=== PATIENT | male | born 1975 | race African-American/Black ===

== ENCOUNTER 2016-11-23 03:00 | Emergency (ER) | payer MEDICARE, OTHER ==
[~2016-11-23 03:00] MED LIST: ACYC400T PO; BENA25CA2 PO; BENZ1TAB PO; BUSP10TA PO; ZYPR20TA PO
[2016-11-23 03:40] VITALS: BP 142/76; PULSE 85; RESP 18; TEMP 97.9; O2SAT 99
[2016-11-23 04:05] LABS: AMPHETAMINE, URINE NEG (NEG); BARBITURATES, URINE NEG (NEG); COCAINE, URINE NEG (NEG)
--- NOTE | 2016-11-23 05:13 | PD ---
HPI Chief Complaint: Psychiatric Symptoms Time Seen by Provider: 05:12 Travel History International Travel<30 days: No Contact w/Intl Traveler<30days: No Traveled to known affect area: No History of Present Illness HPI 41-year-old black male returns soon after leaving AGAINST MEDICAL ADVICE under [place] act by PD. The patient allegedly had confronted police outside in the parking lot stating that the government was attempting to control his mind. He states that they're telling him to take the police officers gun so they can shoot him. The patient here denies any medical complaints now. He states that he had cramps earlier but they did resolve. The patient would like to go back to sleep. Patient denies any suicidal or homicidal ideation. The patient appears more interested in sleeping been continuing are conversation. This is a patient who had seen earlier this evening. I see no acute changes. PFSH Past Medical History Arthritis: No Asthma: No Autoimmune Disease: No Anxiety: Yes (WITH PANIC ATTACKS) Depression: Yes Heart Rhythm Problems: No High Cholesterol: Yes Chest Pain: No Congestive Heart Failure: No COPD: No Cerebrovascular Accident: No Diminished Hearing: No Endocrine: No Gastrointestinal Disorders: Yes (HX OF HEMMORHOIDECTOMY) GERD: Yes Glaucoma: No Genitourinary: Yes (GENITAL HERPES) Hepatitis: No Hiatal Hernia: No Hypertension: No Immune Disorder: No Implanted Vascular Access Dvce: No Kidney Stones: No Musculoskeletal: No Neurologic: Yes (HX OF BELLS PALSY) Psychiatric: Yes Reproductive: No Respiratory: No Immunizations Current: No Myocardial Infarction: No Renal Failure: No Schizophrenia: Yes Sleep Apnea: No Thyroid Disease: No Ulcer: No Past Surgical History Abdominal Surgery: No AICD: No Cardiac Surgery: No Ear Surgery: No Endocrine Surgery: No Eye Surgery: No Genitourinary Surgery: No Gynecologic Surgery: No Neurologic Surgery: No Oral Surgery: No Pacemaker: No Thoracic Surgery: No Other Surgery: Yes (jaw) Social History Alcohol Use: Yes (DAILY ) Tobacco Use: Yes (1PPD) Substance Use: No Allergies-Medications (Allergen,Severity, Reaction): Coded Allergies: Cultivated Oat Pollen (Verified Allergy, Mild, SNEEZING, ITCHING, 03/09/16 ) Uncoded Allergies: Seasonal Allergies (Allergy, Unknown, 02/13/13) Per pt. Reported Meds & Prescriptions Reported Meds & Active Scripts Active Reported Buspirone (Buspirone HCl) 10 Mg Tab 10 Mg PO TID Review of Systems Except as stated in HPI: all other systems reviewed are Neg Physical Exam Narrative GENERAL: Well-nourished, well-developed patient. SKIN: Warm and dry. HEAD: Normocephalic and atraumatic. EYES: No scleral icterus. No injection or drainage. ENT: No nasal drainage noted. Mucous membranes pink. Airway patent. NECK: Supple, trachea midline. Moves head freely without obvious discomfort. CARDIOVASCULAR: Regular rate and rhythm without murmurs, gallops, or rubs. RESPIRATORY: Breath sounds equal bilaterally. No accessory muscle use. GASTROINTESTINAL: Abdomen soft, non-tender, nondistended. EXTREMITIES: No cyanosis or edema. BACK: Nontender without obvious deformity. No CVA tenderness. NEURO: Patient is alert and oriented. no sensorimotor deficits. Nonfocal. Normal speech. PSYCH: Positive delusions of mind control by the government. Data Data Last Documented VS Vital Signs Date Time Temp Pulse Resp B/P Pulse Ox O2 Delivery O2 Flow Rate FiO2 11/23/16 03:40 97.9 85 18 142/76 99 Orders Diet Regular Basic (11/23/16 Breakfast) Drug Screen, Random Urine (11/23/16 03:36) Psych Screen (11/23/16 04:43) Labs Laboratory Tests Test 11/23/16 03:40 Urine Opiates Screen NEG Urine Barbiturates Screen NEG Urine Amphetamines Screen NEG Urine Benzodiazepines Screen NEG Urine Cocaine Screen NEG Urine Cannabinoids Screen NEG MDM Medical Decision Making Medical Screen Exam Complete: Yes Emergency Medical Condition: Yes Medical Record Reviewed: Yes Interpretation(s) Laboratory testing from earlier in the evening was unremarkable. Laboratory Tests Test 11/23/16 03:40 Urine Opiates Screen NEG Urine Barbiturates Screen NEG Urine Amphetamines Screen NEG Urine Benzodiazepines Screen NEG Urine Cocaine Screen NEG Urine Cannabinoids Screen NEG Differential Diagnosis MDM: High Differential diagnoses: Schizophrenia, schizoaffective disorder, bipolar, anxiety, depression, adjustment reaction, mood disorder NOS, ODD, depressive disorder NOS, dementia, dementia with agitation, psychosis NOS, substance induced mood disorder, intermittent explosive disorder, Asperger syndrome, infection,electrolyte abnormality, malingering. Narrative Course Mental health screening discussed with the patient. Psychiatric screen ordered. The patient's been medically cleared. This is medical clearance for psychiatric admission, schizophrenia Diagnosis Primary Impression: Encounter for medical screening examination Additional Impression: Schizophrenia Qualified Code: F20.9 - Schizophrenia, unspecified type Condition: Stable Johny Zamarripa Nov 23, 2016 05:12
[2016-11-23] MEDS ORDERED: BUSP15TA PO (05:54)
[2016-11-23] MEDS ORDERED: DIPH25TA5 (05:54)
[2016-11-23] MEDS ORDERED: BANO25CA PO (05:54)
[2016-11-23] MEDS ORDERED: BENZ0.5T PO (05:54)
[2016-11-23] MEDS ORDERED: ZIPR1CAP8 PO (05:54)
[2016-11-23] MEDS ORDERED: SLEEP AID PO (05:54)
[2016-11-23 06:07] VITALS: BP 103/52; PULSE 59; RESP 18
--- NOTE | 2016-11-23 10:59 | PD ---
History of Present Illness Chief Complaint: Psychiatric Symptoms Time Seen by Provider: 10:50 Travel History International Travel<30 Days: No Contact w/Intl Traveler<30days: No Known affected area: No Legal Status Legal Status: Cotton Act [place] Act Signed By: Ana Florentino History of Present Illness: History of Present Illness HPI 41-year-old black male with history of schizophrenia who [place] [facility] soon after leaving AGAINST MEDICAL ADVICE. He now returns under [place] act by PD. The patient allegedly had confronted police outside in the parking lot stating that the government was attempting to control his mind. He states that they're telling him to take the police officers gun so they can shoot him. While in Ed he was only minimally cooperative and just wanted to sleep. Patient was monitored in J pod and he slept well during the night. Toxicology is negative for any substances of abuse. This morning the patient is awake, alert and oriented. he is requesting to be discharged and tells me " I am ready for discharge". He reports that he came to the hospital because " because my mind was telling me to do something". He now states " I feel better and I don 't need to be here". He denies any suicidal or homicidal ideation. Denies any hallucinatory process and does not appear to be internally stimulated. He states that he is taking his prescribed medication and that he has an appointment with Rosario at [facility] on November 28, 2016. h [facility] Past Medical History Arthritis: No Asthma: No Autoimmune Disease: No Anxiety: Yes (WITH PANIC ATTACKS) Depression: Yes Heart Rhythm Problems: No High Cholesterol: Yes Chest Pain: No Congestive Heart Failure: No COPD: No Cerebrovascular Accident: No Diminished Hearing: No Endocrine: No Gastrointestinal Disorders: Yes (HX OF HEMMORHOIDECTOMY) GERD: Yes Glaucoma: No Genitourinary: Yes (GENITAL HERPES) Hepatitis: No Hiatal Hernia: No Hypertension: No Immune Disorder: No Implanted Vascular Access Dvce: No Kidney Stones: No Musculoskeletal: No Neurologic: Yes (HX OF BELLS PALSY) Psychiatric: Yes Reproductive: No Respiratory: No Immunizations Current: No Myocardial Infarction: No Renal Failure: No Schizophrenia: Yes Sleep Apnea: No Thyroid Disease: No Ulcer: No Past Surgical History Abdominal Surgery: No AICD: No Cardiac Surgery: No Ear Surgery: No Endocrine Surgery: No Eye Surgery: No Genitourinary Surgery: No Gynecologic Surgery: No Neurologic Surgery: No Oral Surgery: No Pacemaker: No Thoracic Surgery: No Other Surgery: Yes (jaw) Psychiatric History Psychiatric History Hx Psychiatric Treatment: PATIENT WAS LAST ADMITTED TO [facility] FROM 11/06/15 TO 11/13/15 FOR SCHIZOPHRENIA. receives outpatietn care at [facility] History of Inpatient Treatment: Yes Guns or firearms in home: No Social History Homeless male. On disability Hx Alcohol Use: Yes (DAILY ) Hx Tobacco Use: Yes (1PPD) Hx Substance Use: Yes Substance Use Type: Cocaine Other Substances Used: Began relapse Hx of Substance Use Treatment: Yes Family Psychiatric History None reported Allergies-Medications (Allergen,Severity, Reaction): Coded Allergies: Cultivated Oat Pollen (Verified Allergy, Mild, SNEEZING, ITCHING, 03/09/16 ) Uncoded Allergies: Seasonal Allergies (Allergy, Unknown, 02/13/13) Per pt. Reported Meds & Prescriptions Reported Meds & Active Scripts Active Reported Ziprasidone 40 Mg Cap 40 Mg PO BID Buspirone (Buspirone HCl) 15 Mg Tab 15 Mg PO BID Benztropine (Benztropine Mesylate) 0.5 Mg Tab 1 Mg PO HS Banophen (Diphenhydramine HCl) 25 Mg Cap 25 Mg PO HS Diphenhydramine HCl 25 Mg Tablet [Sleep Aid] 1 Tab PO HS PRN Review of Systems Except as stated in HPI: all other systems reviewed are Neg Exam Alert: Yes [place]: Person (ox4) Mood: Calm Affect: Appropriate Speech: Clear, Logical Eye Contact: Normal Memory Intact: Comment (No gross abnormality) Hallucinations: Other (denies any) Delusions: No Suicidal: Ideation (Denies any) Homicidal: Ideation (Deneis any) Insight/Judgement Poor. Poor [facility] Medical Decision Making Medical Record Reviewed: Yes Assessment/Plan 41-year-old black male with history of schizophrenia who returns [place] [facility] soon after leaving AGAINST MEDICAL ADVICE. He now returns under [place] act by PD. The patient allegedly had confronted police outside in the parking lot stating that the government was attempting to control his mind. He states that they're telling him to take the police officers gun so they can shoot him. Patient slept well while in J pod and presented no behavioral concerns. no suicidality. Does not appear to be responding to internal stimuli. he is requesting discharge at [facility] time and presents no criteria chetan held here against his will. It is strongly suspected that he malingered his symptoms in order to obtain snf during the night. BA lifted. Cleared for discharge Orders Diet Regular Basic (11/23/16 Breakfast) Drug Screen, Random Urine (11/23/16 03:36) Psych Screen (11/23/16 04:43) Results Vital Signs Date Time Temp Pulse Resp B/P Pulse Ox O2 Delivery O2 Flow Rate FiO2 11/23/16 06:07 59 18 103/52 11/23/16 03:40 97.9 85 18 142/76 99 Laboratory Tests Test 11/23/16 03:40 Urine Opiates Screen NEG Urine Barbiturates Screen NEG Urine Amphetamines Screen NEG Urine Benzodiazepines Screen NEG Urine Cocaine Screen NEG Urine Cannabinoids Screen NEG Diagnosis Primary Impression: Malingering Additional Impression: Schizophrenia Psychiatrically Cleared: Yes Med/ Other Pt Specific Info: No Change to Meds Disposition: 01 DISCHARGE HOME Condition: Stable Problem Qualifiers Additional Impression: Schizophrenia Qualified Code: F20.0 - Paranoid schizophrenia Nataliia Hook [employer] Nov 23, 2016 10:59
[2016-11-23 11:10] VITALS: BP 103/52; PULSE 59; RESP 18
== END 2016-11-23 12:25 | disposition home or self-care (01) ==
LOC: NEPJ 03:00
DX: Z76.5 Malingerer [conscious simulation] (principal); F20.9 Schizophrenia, unspecified
CPT/HCPCS: 80307; 99284

== ENCOUNTER 2016-11-30 05:22 | Emergency (ER) | payer MEDICARE, OTHER ==
[~2016-11-30] VITALS: Ht 180.3 cm; Wt 75.0 kg
[~2016-11-30 05:22] MED LIST changes: -ACYC400T PO; +BANO25CA PO; -BENA25CA2 PO; +BENZ0.5T PO; -BENZ1TAB PO; -BUSP10TA PO; +BUSP15TA PO; +DIPH25TA5; +SLEEP AID PO; +ZIPR1CAP8 PO; -ZYPR20TA PO
[2016-11-30 05:24] VITALS: BP 130/81; PULSE 60; RESP 16; TEMP 97.9; O2SAT 98
[2016-11-30] MEDS ORDERED: ACYC400T PO (05:44)
[2016-11-30] MEDS ORDERED: BENZ0.5T PO (05:44)
[2016-11-30] MEDS ORDERED: HYDR12.56 PO (05:44)
[2016-11-30] MEDS ORDERED: NEXI20CA PO (05:44)
--- NOTE | 2016-11-30 06:28 | PD ---
HPI Chief Complaint: Medical Clearance Time Seen by Provider: 06:24 Travel History International Travel<30 days: No Contact w/Intl Traveler<30days: No Traveled to known affect area: No History of Present Illness HPI 41-year-old black male presents to emergency department on a voluntary basis for psychological evaluation. The patient states that he's been staying at [facility]. He claims that he's been sober now for the past 1-1/2-2 months. He states that he has not been drinking alcohol or doing any drugs. He also states that he has followed up [facility] area he states that he has not been compliant with his medications because he does not feel they're working for him. The patient states that he's having audible and visual hallucinations. He denies any suicidal or homicidal ideation. He denies any medical complaints. He states that he is having racing thoughts. He cannot concentrate. He has not been sleeping well. He would like to speak with the psychiatrist and hopes to regulate his medicines. PFSH Past Medical History Arthritis: No Asthma: No Autoimmune Disease: No Anxiety: Yes (WITH PANIC ATTACKS) Depression: Yes Heart Rhythm Problems: No High Cholesterol: Yes Chest Pain: No Congestive Heart Failure: No COPD: No Cerebrovascular Accident: No Diminished Hearing: No Endocrine: No Gastrointestinal Disorders: Yes (HX OF HEMMORHOIDECTOMY) GERD: Yes Glaucoma: No Genitourinary: Yes (GENITAL HERPES) Hepatitis: No Hiatal Hernia: No Hypertension: No Immune Disorder: No Implanted Vascular Access Dvce: No Kidney Stones: No Musculoskeletal: No Neurologic: Yes (HX OF BELLS PALSY) Psychiatric: Yes Reproductive: No Respiratory: No Immunizations Current: No Myocardial Infarction: No Renal Failure: No Schizophrenia: Yes Sleep Apnea: No Thyroid Disease: No Ulcer: No Past Surgical History Abdominal Surgery: No AICD: No Cardiac Surgery: No Ear Surgery: No Endocrine Surgery: No Eye Surgery: No Genitourinary Surgery: No Gynecologic Surgery: No Neurologic Surgery: No Oral Surgery: No Pacemaker: No Thoracic Surgery: No Other Surgery: Yes (HEMMORHOIDECTOMY) Social History Alcohol Use: Yes (HX OF ABUSE) Tobacco Use: Yes (2PPD) Substance Use: No (DENIES) Allergies-Medications (Allergen,Severity, Reaction): Coded Allergies: Cultivated Oat Pollen (Verified Allergy, Mild, SNEEZING, ITCHING, 8/9/17) Uncoded Allergies: Seasonal Allergies (Allergy, Unknown, 02/13/13) Per pt. Reported Meds & Prescriptions Reported Meds & Active Scripts Active Reported Hydrochlorothiazide 12.5 Mg Tab 12.5 Mg PO DAILY Acyclovir 400 Mg Tab 400 Mg PO QID Benztropine (Benztropine Mesylate) 0.5 Mg Tab 2 Mg PO HS Nexium (Esomeprazole DR) 20 Mg Capdr 20 Mg PO DAILY Buspirone (Buspirone HCl) 15 Mg Tab 15 Mg PO TID Banophen (Diphenhydramine HCl) 25 Mg Cap 25 Mg PO HS Review of Systems Except as stated in HPI: all other systems reviewed are Neg Physical Exam Narrative GENERAL: Well-nourished, well-developed patient. SKIN: Warm and dry. HEAD: Normocephalic and atraumatic. EYES: No scleral icterus. No injection or drainage. ENT: No nasal drainage noted. Mucous membranes pink. Airway patent. NECK: Supple, trachea midline. Moves head freely without obvious discomfort. CARDIOVASCULAR: Regular rate and rhythm without murmurs, gallops, or rubs. RESPIRATORY: Breath sounds equal bilaterally. No accessory muscle use. GASTROINTESTINAL: Abdomen soft, non-tender, nondistended. EXTREMITIES: No cyanosis or edema. BACK: Nontender without obvious deformity. No CVA tenderness. NEURO: Patient is alert and oriented. no sensorimotor deficits. Nonfocal. Normal speech. PSYCH: Positive hallucinations Data Data Last Documented VS Vital Signs Date Time Temp Pulse Resp B/P Pulse Ox O2 Delivery O2 Flow Rate FiO2 11/30/16 05:24 97.9 60 16 130/81 98 Orders Complete Blood Count With Diff (11/30/16 05:39) Comprehensive Metabolic Panel (11/30/16 05:39) Psych Screen (11/30/16 05:39) Drug Screen, Random Urine (11/30/16 05:39) Alcohol (Ethanol) (11/30/16 05:39) Labs Laboratory Tests Test 11/30/16 11/30/16 05:49 06:16 Sodium Level 143 MEQ/L Potassium Level 3.6 MEQ/L Chloride Level 111 MEQ/L Carbon Dioxide Level 26.0 MEQ/L Anion Gap 6 MEQ/L Blood Urea Nitrogen 13 MG/DL Creatinine 1.09 MG/DL Estimat Glomerular Filtration 91 ML/MIN Rate Random Glucose 91 MG/DL Calcium Level 8.3 MG/DL Total Bilirubin 0.3 MG/DL Aspartate Amino Transf 15 U/L (AST/SGOT) Alanine Aminotransferase 25 U/L (ALT/SGPT) Alkaline Phosphatase 48 U/L Total Protein 6.5 GM/DL Albumin 3.4 GM/DL Urine Opiates Screen NEG Urine Barbiturates Screen NEG Urine Amphetamines Screen NEG Urine Benzodiazepines Screen NEG Urine Cocaine Screen NEG Urine Cannabinoids Screen NEG Ethyl Alcohol Level LESS THAN 3 MG/DL White Blood Count 5.8 TH/MM3 Red Blood Count 4.41 MIL/MM3 Hemoglobin 14.5 GM/DL Hematocrit 41.9 % Mean Corpuscular Volume 95.0 FL Mean Corpuscular Hemoglobin 32.8 PG Mean Corpuscular Hemoglobin 34.6 % Concent Red Cell Distribution Width 13.1 % Platelet Count 219 TH/MM3 Mean Platelet Volume 7.6 FL Neutrophils (%) (Auto) 45.0 % Lymphocytes (%) (Auto) 43.7 % Monocytes (%) (Auto) 7.9 % Eosinophils (%) (Auto) 2.7 % Basophils (%) (Auto) 0.7 % Neutrophils # (Auto) 2.6 TH/MM3 Lymphocytes # (Auto) 2.5 TH/MM3 Monocytes # (Auto) 0.5 TH/MM3 Eosinophils # (Auto) 0.2 TH/MM3 Basophils # (Auto) 0.0 TH/MM3 CBC Comment DIFF FINAL Differential Comment MDM Medical Decision Making Medical Screen Exam Complete: Yes Emergency Medical Condition: Yes Medical Record Reviewed: Yes Interpretation(s) Laboratory Tests Test 11/30/16 11/30/16 05:49 06:16 Sodium Level 143 MEQ/L Potassium Level 3.6 MEQ/L Chloride Level 111 MEQ/L Carbon Dioxide Level 26.0 MEQ/L Anion Gap 6 MEQ/L Blood Urea Nitrogen 13 MG/DL Creatinine 1.09 MG/DL Estimat Glomerular Filtration 91 ML/MIN Rate Random Glucose 91 MG/DL Calcium Level 8.3 MG/DL Total Bilirubin 0.3 MG/DL Aspartate Amino Transf 15 U/L (AST/SGOT) Alanine Aminotransferase 25 U/L (ALT/SGPT) Alkaline Phosphatase 48 U/L Total Protein 6.5 GM/DL Albumin 3.4 GM/DL Urine Opiates Screen NEG Urine Barbiturates Screen NEG Urine Amphetamines Screen NEG Urine Benzodiazepines Screen NEG Urine Cocaine Screen NEG Urine Cannabinoids Screen NEG Ethyl Alcohol Level LESS THAN 3 MG/DL White Blood Count 5.8 TH/MM3 Red Blood Count 4.41 MIL/MM3 Hemoglobin 14.5 GM/DL Hematocrit 41.9 % Mean Corpuscular Volume 95.0 FL Mean Corpuscular Hemoglobin 32.8 PG Mean Corpuscular Hemoglobin 34.6 % Concent Red Cell Distribution Width 13.1 % Platelet Count 219 TH/MM3 Mean Platelet Volume 7.6 FL Neutrophils (%) (Auto) 45.0 % Lymphocytes (%) (Auto) 43.7 % Monocytes (%) (Auto) 7.9 % Eosinophils (%) (Auto) 2.7 % Basophils (%) (Auto) 0.7 % Neutrophils # (Auto) 2.6 TH/MM3 Lymphocytes # (Auto) 2.5 TH/MM3 Monocytes # (Auto) 0.5 TH/MM3 Eosinophils # (Auto) 0.2 TH/MM3 Basophils # (Auto) 0.0 TH/MM3 CBC Comment DIFF FINAL Differential Comment Differential Diagnosis MDM: High Differential diagnoses: Schizophrenia, schizoaffective disorder, bipolar, anxiety, depression, adjustment reaction, mood disorder NOS, ODD, depressive disorder NOS, dementia, dementia with agitation, psychosis NOS, substance induced mood disorder, intermittent explosive disorder, Asperger syndrome, infection,electrolyte abnormality, malingering. Narrative Course Mental health screening discussed with the patient. Psychiatric screen ordered. The patient is been medically cleared. This is medical clearance for psychiatric admission, schizophrenia Diagnosis Primary Impression: Encounter for medical screening examination Additional Impression: Schizophrenia Qualified Code: F20.9 - Schizophrenia, unspecified type Condition: Stable Johny Zamarripa Nov 30, 2016 06:28
[2016-11-30 06:33] LABS: ALT (GPT) 25 U/L (12-78); ANION GAP 6 MEQ/L (5-15); AST (GOT) 15 U/L (15-37); BLOOD UREA NITROGEN 13 MG/DL (7-18); CHLORIDE 111 MEQ/L (98-107); GLOMERULAR FILTRATION RATE 91 ML/MIN (>89); POTASSIUM 3.6 MEQ/L (3.5-5.1); SODIUM (NA) 143 MEQ/L (136-145)
[2016-11-30 06:36] LABS: ALKALINE PHOSPHATASE 48 U/L (45-117); TOTAL BILIRUBIN ADULT 0.3 MG/DL (0.2-1.0)
[2016-11-30 06:37] LABS: ALCOHOL LESS THAN 3 MG/DL (0-5)
[2016-11-30 06:39] LABS: AUTOMATED NEUTROPHIL # 2.6 TH/MM3 (1.8-7.7); BASOPHIL % 0.7 % (0.0-2.0); EOSINOPHIL # 0.2 TH/MM3 (0-0.4); EOSINOPHIL % 2.7 % (0.0-4.0); HEMATOCRIT 41.9 % (39.0-51.0); HEMO FLAGS DIFF FINAL; LYMPH % 43.7 % (9.0-44.0); LYMPHOCYTE # 2.5 TH/MM3 (1.0-4.8); MEAN CORPUSCULAR HEMOGLOBIN 32.8 PG (27.0-34.0); MEAN CORPUSCULAR HGB CONC 34.6 % (32.0-36.0); MONO % 7.9 % (0.0-8.0); PLATELET COUNT 219 TH/MM3 (150-450); RED BLOOD COUNT 4.41 MIL/MM3 (4.50-5.90); RED CELL DISTRIBUTION WIDTH 13.1 % (11.6-17.2); WHITE BLOOD COUNT 5.8 TH/MM3 (4.0-11.0)
[2016-11-30] MEDS ORDERED: SERO50TA PO (10:57)
--- NOTE | 2016-11-30 11:54 | PD ---
History of Present Illness Chief Complaint: Medical Clearance Time Seen by Provider: 11:15 Travel History International Travel<30 Days: No Contact w/Intl Traveler<30days: No Known affected area: No Legal Status Legal Status: Voluntary History of Present Illness: 41-year-old male with history of chronic paranoid schizophrenia, previously treated by [facility]. He presents today seeking medication for "racing thoughts" and general paranoia. He does feel people in the healthcare business are out to persecute him. However, he is also not sleeping due to his paranoia and racing thoughts. This physician discussed multiple aspects of his care, including hospitalization, outpatient treatment, changing medicines, etc. The patient denies any suicidal or homicidal ideation, plan or intent at this time. 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 He denies any ingestion of alcohol or illicit drugs. He would like to take medication to help him sleep and dampen the racing thoughts/paranoia. This physician offered the patient's Seroquel and he agreed, having taken it before. PFSH Past Medical History Arthritis: No Asthma: No Autoimmune Disease: No Anxiety: Yes (WITH PANIC ATTACKS) Depression: Yes Heart Rhythm Problems: No High Cholesterol: Yes Chest Pain: No Congestive Heart Failure: No COPD: No Cerebrovascular Accident: No Diminished Hearing: No Endocrine: No Gastrointestinal Disorders: Yes (HX OF HEMMORHOIDECTOMY) GERD: Yes Glaucoma: No Genitourinary: Yes (GENITAL HERPES) Hepatitis: No Hiatal Hernia: No Hypertension: No Immune Disorder: No Implanted Vascular Access Dvce: No Kidney Stones: No Musculoskeletal: No Neurologic: Yes (HX OF BELLS PALSY) Psychiatric: Yes Reproductive: No Respiratory: No Immunizations Current: No Myocardial Infarction: No Renal Failure: No Schizophrenia: Yes Sleep Apnea: No Thyroid Disease: No Ulcer: No Past Surgical History Abdominal Surgery: No AICD: No Cardiac Surgery: No Ear Surgery: No Endocrine Surgery: No Eye Surgery: No Genitourinary Surgery: No Gynecologic Surgery: No Neurologic Surgery: No Oral Surgery: No Pacemaker: No Thoracic Surgery: No Other Surgery: Yes (HEMMORHOIDECTOMY) Psychiatric History Psychiatric History Hx Psychiatric Treatment: PATIENT WAS LAST ADMITTED TO [facility] FROM 11/06/15 TO 11/13/15 FOR SCHIZOPHRENIA. receives outpatietn care at [facility] History of Inpatient Treatment: Yes Guns or firearms in home: No Social History Hx Alcohol Use: Yes (HX OF ABUSE) Hx Tobacco Use: Yes (2PPD) Hx Substance Use: No (DENIES) Substance Use Type: Cocaine Other Substances Used: Began relapse Hx of Substance Use Treatment: Yes Allergies-Medications (Allergen,Severity, Reaction): Coded Allergies: Cultivated Oat Pollen (Verified Allergy, Mild, SNEEZING, ITCHING, 11/30/16) Uncoded Allergies: Seasonal Allergies (Allergy, Unknown, 02/13/13) Per pt. Reported Meds & Prescriptions Reported Meds & Active Scripts Active Seroquel (Quetiapine Fumarate) 50 Mg Tab 50 Mg PO HS Reported Hydrochlorothiazide 12.5 Mg Tab 12.5 Mg PO DAILY Acyclovir 400 Mg Tab 400 Mg PO QID Benztropine (Benztropine Mesylate) 0.5 Mg Tab 2 Mg PO HS Nexium (Esomeprazole DR) 20 Mg Capdr 20 Mg PO DAILY Buspirone (Buspirone HCl) 15 Mg Tab 15 Mg PO TID Banophen (Diphenhydramine HCl) 25 Mg Cap 25 Mg PO HS Review of Systems Except as stated in HPI: all other systems reviewed are Neg Exam Alert: Yes [place]: Person, Place, Date, Situation Mood: Calm Affect: Appropriate Speech: Clear Eye Contact: Indirect Memory Intact: Immediate, Recent, Remote Delusions: Yes Delusion Type: Paranoid Insight/Judgement Adequate MDM Medical Decision Making Medical Record Reviewed: Yes Assessment/Plan This physician spoke with the patient's nurse and reviewed his record. This physician notes the patient was hospitalized just several weeks ago. At this time, he is denying any suicidal or homicidal ideation, plan or intent. Despite his paranoia and racing thoughts, he is competent to contract for safety and he is doing so. He would like to take his Seroquel and lower doses and this physician did prescribe Seroquel at night. This will help him go to sleep and to dampen the racing thoughts. As least restrictive alternative applies, this physician does not feel the patient qualifies for [place] act or inpatient psychiatric hospitalization. Orders Complete Blood Count With Diff (11/30/16 05:39) Comprehensive Metabolic Panel (11/30/16 05:39) Psych Screen (11/30/16 05:39) Drug Screen, Random Urine (11/30/16 05:39) Alcohol (Ethanol) (11/30/16 05:39) Diet Regular Basic (11/30/16 Breakfast) Results Vital Signs Date Time Temp Pulse Resp B/P Pulse Ox O2 Delivery O2 Flow Rate FiO2 11/30/16 05:24 97.9 60 16 130/81 98 Laboratory Tests Test 11/30/16 11/30/16 05:49 06:16 Sodium Level 143 Potassium Level 3.6 Chloride Level 111 Carbon Dioxide Level 26.0 Anion Gap 6 Blood Urea Nitrogen 13 Creatinine 1.09 Estimat Glomerular Filtration 91 Rate Random Glucose 91 Calcium Level 8.3 Total Bilirubin 0.3 Aspartate Amino Transf 15 (AST/SGOT) Alanine Aminotransferase 25 (ALT/SGPT) Alkaline Phosphatase 48 Total Protein 6.5 Albumin 3.4 Urine Opiates Screen NEG Urine Barbiturates Screen NEG Urine Amphetamines Screen NEG Urine Benzodiazepines Screen NEG Urine Cocaine Screen NEG Urine Cannabinoids Screen NEG Ethyl Alcohol Level LESS THAN 3 White Blood Count 5.8 Red Blood Count 4.41 Hemoglobin 14.5 Hematocrit 41.9 Mean Corpuscular Volume 95.0 Mean Corpuscular Hemoglobin 32.8 Mean Corpuscular Hemoglobin 34.6 Concent Red Cell Distribution Width 13.1 Platelet Count 219 Mean Platelet Volume 7.6 Neutrophils (%) (Auto) 45.0 Lymphocytes (%) (Auto) 43.7 Monocytes (%) (Auto) 7.9 Eosinophils (%) (Auto) 2.7 Basophils (%) (Auto) 0.7 Neutrophils # (Auto) 2.6 Lymphocytes # (Auto) 2.5 Monocytes # (Auto) 0.5 Eosinophils # (Auto) 0.2 Basophils # (Auto) 0.0 CBC Comment DIFF FINAL Differential Comment Diagnosis Primary Impression: Chronic paranoid schizophrenia Referrals: Elton Villa MD (PCP) call for appointment [facility] call for appointment Mental Health and Substance Abuse Departure Forms: Tests/Procedures Patient Instructions: General Instructions, Schizophrenia (ED), Medical Clearance for Psychiatric Care (ED) Prescriptions Quetiapine (Seroquel)50 Mg Tab50 Mg PO HS #30 TAB Ref 1 Prov:Sabino Salmon MD 11/30/16 Condition: Stable Sabino Salmon MD Nov 30, 2016 11:54
== END 2016-11-30 11:06 | disposition home or self-care (01) ==
LOC: NEPD 05:22
DX: F20.0 Paranoid schizophrenia (principal)
CPT/HCPCS: 80053; 80307; 85025; 99283

== ENCOUNTER 2017-01-01 03:34 | Emergency (ER) | payer MEDICARE, OTHER ==
[~2017-01-01] VITALS: Ht 180.3 cm; Wt 80.0 kg
[~2017-01-01 03:34] MED LIST changes: +ACYC400T PO; -DIPH25TA5; +HYDR12.56 PO; +NEXI20CA PO; +SERO50TA PO; -SLEEP AID PO; -ZIPR1CAP8 PO
[2017-01-01 03:41] VITALS: BP 140/85; PULSE 85; RESP 18; TEMP 97.2; O2SAT 98
[2017-01-01] MEDS ORDERED: SERO50TA PO (03:56)
--- NOTE | 2017-01-01 03:56 | PD ---
HPI . Schizophrenia Chief Complaint: Medication Refill Request Time Seen by Provider: 03:41 Travel History International Travel<30 days: No Contact w/Intl Traveler<30days: No Traveled to known affect area: No History of Present Illness HPI This patient presents with the chief complaint of eating cigarette butts. He states that he did this to prove that he needed to be on his psychiatric medications. He denies any medical complaints. He reports emesis prior to presentation. PFSH Past Medical History Arthritis: No Asthma: No Autoimmune Disease: No Anxiety: Yes (WITH PANIC ATTACKS) Depression: Yes Heart Rhythm Problems: No High Cholesterol: Yes Chest Pain: No Congestive Heart Failure: No COPD: No Cerebrovascular Accident: No Diminished Hearing: No Endocrine: No Gastrointestinal Disorders: Yes (HX OF HEMMORHOIDECTOMY) GERD: Yes Glaucoma: No Genitourinary: Yes (GENITAL HERPES) Hepatitis: No Hiatal Hernia: No Hypertension: No Immune Disorder: No Implanted Vascular Access Dvce: No Kidney Stones: No Musculoskeletal: No Neurologic: Yes (HX OF BELLS PALSY) Psychiatric: Yes Reproductive: No Respiratory: No Immunizations Current: No Myocardial Infarction: No Renal Failure: No Schizophrenia: Yes Sleep Apnea: No Thyroid Disease: No Ulcer: No Past Surgical History Abdominal Surgery: No AICD: No Cardiac Surgery: No Ear Surgery: No Endocrine Surgery: No Eye Surgery: No Genitourinary Surgery: No Gynecologic Surgery: No Insulin Pump: No Neurologic Surgery: No Oral Surgery: No Pacemaker: No Thoracic Surgery: No Other Surgery: Yes (HEMMORHOIDECTOMY) Social History Alcohol Use: Yes (HX OF ABUSE) Tobacco Use: Yes (2PPD) Substance Use: No (DENIES) Allergies-Medications (Allergen,Severity, Reaction): Coded Allergies: grass pollen (Unverified Allergy, Mild, SNEEZING, ITCHING, 01/01/17) Uncoded Allergies: Seasonal Allergies (Allergy, Unknown, 02/13/13) Per pt. Reported Meds & Prescriptions Reported Meds & Active Scripts Active Seroquel (Quetiapine Fumarate) 50 Mg Tab 50 Mg PO HS Reported Hydrochlorothiazide 12.5 Mg Tab 12.5 Mg PO DAILY Acyclovir 400 Mg Tab 400 Mg PO QID Benztropine (Benztropine Mesylate) 0.5 Mg Tab 2 Mg PO HS Nexium (Esomeprazole DR) 20 Mg Capdr 20 Mg PO DAILY Buspirone (Buspirone HCl) 15 Mg Tab 15 Mg PO TID Banophen (Diphenhydramine HCl) 25 Mg Cap 25 Mg PO HS Review of Systems Except as stated in HPI: all other systems reviewed are Neg Gastrointestinal: Positive: Nausea, Vomiting Psychiatric: Positive: Disorder of Thought, No: Suicidal Ideations Physical Exam Narrative GENERAL: Patient is awake and alert. He has drunk approximately 32 ounces of Gatorade without difficulty. He takes a gulp of Gatorade and then spits into his emesis bag. There has been no emesis. SKIN: No rashes noted. HEAD: Normocephalic/atraumatic. EYES: Pupils are equal. Extraocular movements are intact. NECK: Full range of motion without pain. CARDIOVASCULAR: Regular rate and rhythm. RESPIRATORY: Nonlabored. MUSCULOSKELETAL: Atraumatic. NEUROLOGICAL: Alert and oriented. No cranial nerve deficits. Moves all 4 extremities equally. PSYCHIATRIC: Appropriate mood and affect. Judgment poor. Data Data Last Documented VS Vital Signs Date Time Temp Pulse Resp B/P (MAP) Pulse Ox O2 Delivery O2 Flow Rate FiO2 01/01/17 03:41 97.2 85 18 140/85 (103) 98 MDM Medical Decision Making Medical Screen Exam Complete: Yes Emergency Medical Condition: Yes Medical Record Reviewed: Yes (he has a history of schizophrenia and is on Seroquel.) Differential Diagnosis Differential diagnosis of psychosis includes but is not limited to schizophrenia , schizoaffective disorder, bipolar disorder, intoxication, substance abuse, dementia Narrative Course This patient presents stating that he ate cigarette butts to prove that he needed to be on his psychiatric medications. He states that he last took his psychiatric medication yesterday. He is now out. He would like a refill. Diagnosis Primary Impression: Chronic paranoid schizophrenia Med/Other Pt SpecificInfo: Prescription(s) given Scripts Quetiapine (Seroquel) 50 Mg Tab 50 MG PO HS, #30 TAB 1 Refill Prov: Kanchan Valdez MD 01/01/17 Disposition: 01 DISCHARGE HOME Condition: Stable Kanchan Valdez MD Jan 01, 2017 03:56
[2017-01-01] MEDS ORDERED: QUEtiapine FUMARATE 25 MG TAB PO ONE (04:00)
== END 2017-01-01 05:08 | disposition home or self-care (01) ==
LOC: NEPE 03:34
DX: F20.0 Paranoid schizophrenia (principal); F17.210 Nicotine dependence, cigarettes, uncomplicated
CPT/HCPCS: 99283

== ENCOUNTER 2017-01-03 00:41 | Emergency (ER) | payer MEDICARE, OTHER ==
[~2017-01-03] VITALS: Ht 180.3 cm; Wt 72.0 kg
[2017-01-03 00:43] VITALS: BP 124/88; PULSE 86; RESP 16; O2SAT 97
--- NOTE | 2017-01-03 00:58 | PD ---
HPI Chief Complaint: Psychiatric Symptoms Time Seen by Provider: 00:50 Travel History International Travel<30 days: No Contact w/Intl Traveler<30days: No Traveled to known affect area: No History of Present Illness HPI 41-year-old black male returns to the emergency department stating that he was kicked out of his [facility] last night. He has not taken his medication. He states that he is unable to sleep. He denies any suicidal or homicidal ideation. PFSH Past Medical History Arthritis: No Asthma: No Autoimmune Disease: No Anxiety: Yes (WITH PANIC ATTACKS) Depression: Yes Heart Rhythm Problems: No High Cholesterol: Yes Chest Pain: No Congestive Heart Failure: No COPD: No Cerebrovascular Accident: No Diminished Hearing: No Endocrine: No Gastrointestinal Disorders: Yes (HX OF HEMMORHOIDECTOMY) GERD: Yes Glaucoma: No Genitourinary: Yes (GENITAL HERPES) Hepatitis: No Hiatal Hernia: No Hypertension: No Immune Disorder: No Implanted Vascular Access Dvce: No Kidney Stones: No Musculoskeletal: No Neurologic: Yes (HX OF BELLS PALSY) Psychiatric: Yes Reproductive: No Respiratory: No Immunizations Current: No Myocardial Infarction: No Renal Failure: No Schizophrenia: Yes Sleep Apnea: No Thyroid Disease: No Ulcer: No Past Surgical History Abdominal Surgery: No AICD: No Cardiac Surgery: No Ear Surgery: No Endocrine Surgery: No Eye Surgery: No Genitourinary Surgery: No Gynecologic Surgery: No Insulin Pump: No Neurologic Surgery: No Oral Surgery: No Pacemaker: No Thoracic Surgery: No Other Surgery: Yes (HEMMORHOIDECTOMY) Social History Alcohol Use: Yes (HX OF ABUSE) Tobacco Use: Yes (2PPD) Substance Use: No (DENIES) Allergies-Medications (Allergen,Severity, Reaction): Coded Allergies: grass pollen (Unverified Allergy, Mild, SNEEZING, ITCHING, 01/03/17) Uncoded Allergies: Seasonal Allergies (Allergy, Unknown, 02/13/13) Per pt. Reported Meds & Prescriptions Reported Meds & Active Scripts Active Seroquel (Quetiapine Fumarate) 50 Mg Tab 50 Mg PO HS Reported Hydrochlorothiazide 12.5 Mg Tab 12.5 Mg PO DAILY Acyclovir 400 Mg Tab 400 Mg PO QID Benztropine (Benztropine Mesylate) 0.5 Mg Tab 2 Mg PO HS Nexium (Esomeprazole DR) 20 Mg Capdr 20 Mg PO DAILY Buspirone (Buspirone HCl) 15 Mg Tab 15 Mg PO TID Banophen (Diphenhydramine HCl) 25 Mg Cap 25 Mg PO HS Review of Systems Except as stated in HPI: all other systems reviewed are Neg Physical Exam Narrative GENERAL: This is a well-nourished, well-developed patient, in no apparent distress. SKIN: No rashes, ecchymoses or lesions. Warm and dry. HEAD: Atraumatic. Normocephalic. EYES: PERRL, EOMI, no discharge or injection. No scleral icterus. EARS: Clear NOSE: Nasal turbinates appear normal. THROAT: Mucosa pink and moist. Airway patent. NECK: Trachea midline. supple, moves head freely. LUNGS: Clear to auscultation. CV: Regular in rhythm. ABDOMEN: Soft nontender. EXT: No clubbing cyanosis or edema. Data Data Last Documented VS Vital Signs Date Time Temp Pulse Resp B/P (MAP) Pulse Ox O2 Delivery O2 Flow Rate FiO2 01/03/17 00:43 86 16 124/88 (100) 97 Room Air Orders Orders Quetiapine (Seroquel) (01/03/17 01:00) [facility] Medical Decision Making Medical Screen Exam Complete: Yes Emergency Medical Condition: Yes Medical Record Reviewed: Yes Differential Diagnosis Differential diagnoses: Schizophrenia, psychosis, malingering Narrative Course Patient's given Seroquel 100 mg by mouth and discharged. This is schizophrenia Diagnosis Primary Impression: Schizophrenia Qualified Codes: F20.9 - Schizophrenia, unspecified Patient Instructions: General Instructions Additional Instructions: Rest. Follow-up Joe Koch tomorrow. Disposition: 01 DISCHARGE HOME Condition: Stable Johny Zamarripa Jan 03, 2017 00:58
[2017-01-03] MEDS ORDERED: QUEtiapine FUMARATE 100 MG TAB PO ONE (01:00)
== END 2017-01-03 01:37 | disposition home or self-care (01) ==
LOC: NEPD 00:41
DX: Z00.8 Encounter for other general examination (principal); F20.9 Schizophrenia, unspecified; F41.9 Anxiety disorder, unspecified
CPT/HCPCS: 99283

== ENCOUNTER 2017-01-03 03:34 | Emergency (ER) | payer MEDICARE, OTHER ==
[~2017-01-03] VITALS: Ht 180.3 cm; Wt 70.0 kg
[2017-01-03 03:35] VITALS: BP 113/78; PULSE 78; RESP 16; TEMP 98.8; O2SAT 99
--- NOTE | 2017-01-03 03:55 | PD ---
HPI Chief Complaint: Psychiatric Symptoms Time Seen by Provider: 03:43 Travel History International Travel<30 days: No Contact w/Intl Traveler<30days: No Traveled to known affect area: No History of Present Illness HPI 41-year-old black male returns again this evening after being treated discharge. He was given a dose of Seroquel. He has stated that he had been kicked out of his [facility]. The patient now states that he is sleepy and he has nowhere to go therefore he will wants to kill himself. He states that he has no current plan. The patient lays down on the bed covers himself with a blanket in attempts to sleep. PFSH Past Medical History Arthritis: No Asthma: No Autoimmune Disease: No Anxiety: Yes (WITH PANIC ATTACKS) Depression: Yes Heart Rhythm Problems: No High Cholesterol: Yes Chest Pain: No Congestive Heart Failure: No COPD: No Cerebrovascular Accident: No Diminished Hearing: No Endocrine: No Gastrointestinal Disorders: Yes (HX OF HEMMORHOIDECTOMY) GERD: Yes Glaucoma: No Genitourinary: Yes (GENITAL HERPES) Hepatitis: No Hiatal Hernia: No Hypertension: No Immune Disorder: No Implanted Vascular Access Dvce: No Kidney Stones: No Musculoskeletal: No Neurologic: Yes (HX OF BELLS PALSY) Psychiatric: Yes Reproductive: No Respiratory: No Immunizations Current: No Myocardial Infarction: No Renal Failure: No Schizophrenia: Yes Sleep Apnea: No Thyroid Disease: No Ulcer: No Past Surgical History Abdominal Surgery: No AICD: No Cardiac Surgery: No Ear Surgery: No Endocrine Surgery: No Eye Surgery: No Genitourinary Surgery: No Gynecologic Surgery: No Insulin Pump: No Neurologic Surgery: No Oral Surgery: No Pacemaker: No Thoracic Surgery: No Other Surgery: Yes (HEMMORHOIDECTOMY) Social History Alcohol Use: Yes (HX OF ABUSE) Tobacco Use: Yes (2PPD) Substance Use: No (DENIES) Allergies-Medications (Allergen,Severity, Reaction): Coded Allergies: grass pollen (Unverified Allergy, Mild, SNEEZING, ITCHING, 01/03/17) Uncoded Allergies: Seasonal Allergies (Allergy, Unknown, 02/13/13) Per pt. Reported Meds & Prescriptions Reported Meds & Active Scripts Active Seroquel (Quetiapine Fumarate) 50 Mg Tab 50 Mg PO HS Reported Hydrochlorothiazide 12.5 Mg Tab 12.5 Mg PO DAILY Acyclovir 400 Mg Tab 400 Mg PO QID Benztropine (Benztropine Mesylate) 0.5 Mg Tab 2 Mg PO HS Nexium (Esomeprazole DR) 20 Mg Capdr 20 Mg PO DAILY Buspirone (Buspirone HCl) 15 Mg Tab 15 Mg PO TID Banophen (Diphenhydramine HCl) 25 Mg Cap 25 Mg PO HS Review of Systems Except as stated in HPI: all other systems reviewed are Neg Physical Exam Narrative GENERAL: This is a well-nourished, well-developed patient, in no apparent distress. The patient enters the room and perceives to lay down on the bed and cover himself up with a blanket. He rolls over onto his side in attempts to go to sleep during my history and exam. SKIN: No rashes, ecchymoses or lesions. Warm and dry. HEAD: Atraumatic. Normocephalic. EYES: PERRL, EOMI, no discharge or injection. No scleral icterus. EARS: Clear NOSE: Nasal turbinates appear normal. THROAT: Mucosa pink and moist. Airway patent. NECK: Trachea midline. supple, moves head freely. LUNGS: Clear to auscultation. CV: Regular in rhythm. ABDOMEN: Soft nontender. EXT: No clubbing cyanosis or edema. Data Data Last Documented VS Vital Signs Date Time Temp Pulse Resp B/P (MAP) Pulse Ox O2 Delivery O2 Flow Rate FiO2 01/03/17 03:35 98.8 78 16 113/78 (90) 99 Room Air MDM Medical Decision Making Medical Screen Exam Complete: Yes Emergency Medical Condition: Yes Medical Record Reviewed: Yes Differential Diagnosis Differential diagnoses: Schizophrenia, substance abuse, malingering Narrative Course This is a patient who had seen earlier today and given him his evening dose of Seroquel. He presents again stating that he has nowhere to go and he feels suicidal because he has no place to stay. The patient is not truly suicidal. His is malingering to obtain a domicile Diagnosis Primary Impression: Malingering Patient Instructions: General Instructions Additional Instructions: Rest. Follow-up with Esau Koch today Med/Other Pt SpecificInfo: No Change to Meds Disposition: 01 DISCHARGE HOME Condition: Stable Johny Zamarripa Jan 03, 2017 03:55
== END 2017-01-03 06:35 | disposition home or self-care (01) ==
LOC: NEPD 03:34
DX: Z00.8 Encounter for other general examination (principal); F41.9 Anxiety disorder, unspecified; Z76.5 Malingerer [conscious simulation]
CPT/HCPCS: 99281

== ENCOUNTER 2017-01-03 15:29 | Emergency (ER) | payer MEDICARE, OTHER ==
[~2017-01-03] VITALS: Ht 180.3 cm; Wt 75.0 kg
[2017-01-03 16:37] VITALS: BP 129/72; PULSE 85; RESP 18; TEMP 98.6; O2SAT 100
--- NOTE | 2017-01-03 16:37 | PD ---
HPI Chief Complaint: Pain: Acute or Chronic Time Seen by Provider: 16:29 Travel History International Travel<30 days: No Contact w/Intl Traveler<30days: No Traveled to known affect area: No History of Present Illness HPI 41-year-old male presents to emergency department complaining of mid to lower back pain after lifting up his laundry basket today; he is carrying his laundry basket with him. He denies encopresis, incontinence, saddle anesthesias. Denies fever, vomiting, abdominal pain, dysuria, change in stool. Denies IV drug use or cancer. Has not taken any medications or tried any treatments to alleviate symptoms. Pain is aggravated with walking. Denies change in gait. Has no other medical complaints. Symptoms are mild in severity. Has seasonal allergies. No other modifying factors or associated signs and symptoms. History Past Medical Histgory Hx Chemotherapy: No Social History Alcohol Use: Yes (HX OF ABUSE) Tobacco Use: Yes (2PPD) Allergies-Medications (Allergen,Severity, Reaction): Coded Allergies: grass pollen (Unverified Allergy, Mild, SNEEZING, ITCHING, 01/03/17) Uncoded Allergies: Seasonal Allergies (Allergy, Unknown, 02/13/13) Per pt. Reported Meds & Prescriptions Reported Meds & Active Scripts Active Seroquel (Quetiapine Fumarate) 50 Mg Tab 50 Mg PO HS Reported Hydrochlorothiazide 12.5 Mg Tab 12.5 Mg PO DAILY Acyclovir 400 Mg Tab 400 Mg PO QID Benztropine (Benztropine Mesylate) 0.5 Mg Tab 2 Mg PO HS Nexium (Esomeprazole DR) 20 Mg Capdr 20 Mg PO DAILY Buspirone (Buspirone HCl) 15 Mg Tab 15 Mg PO TID Banophen (Diphenhydramine HCl) 25 Mg Cap 25 Mg PO HS Review of Systems Except as stated in HPI: all other systems reviewed are Neg Physical Exam Narrative GENERAL: Well-nourished, well-developed black male patient, in no acute distress ; afebrile, nontoxic-appearing SKIN: Warm and dry. HEAD: Atraumatic. Normocephalic. EYES: Pupils equal and round. No scleral icterus. No injection or drainage. ENT: Mucosa pink and moist. Airway patent. NECK: Trachea midline. CARDIOVASCULAR: Regular rate. RESPIRATORY: No accessory muscle use. GASTROINTESTINAL: Flat. MUSCULOSKELETAL: Bilateral lower extremities supple and non-tense with 2+ pedal pulses and sensory intact; with full range of motion and 5/5 strength. 2 + DTRs bilaterally. Active dorsiflexion and extension of bilateral feet. Bilateral straight leg raise is negative for low back pain. Ambulatory in room with normal gait. Sitting up in bed at 90. No obvious deformities. No clubbing. No cyanosis. No edema. BACK: No midline point tenderness on palpation of the lumbar spine. Tenderness on palpation of bilateral lumbar iliosacral area. No obvious deformities. NEUROLOGICAL: Awake and alert. Oriented 3. No obvious cranial nerve deficits. Motor grossly within normal limits. Normal speech. Moves all extremities. 5/5 strength to all extremities. Sensory intact. PSYCHIATRIC: Appropriate mood and affect; insight and judgment normal. [facility] Medical Screen Exam Complete: Yes Emergency Medical Condition: No Narrative Course Low back pain Plan 41-year-old male with complaint of low back pain after lifting up his laundry basket that he was carrying with him. It appears to be very light weight. Denies encopresis, incontinence, saddle anesthesias. Denies fever, vomiting. Denies IV drug use or cancer. Vital signs are stable and the patient is stable for outpatient follow-up and treatment. The patient has no urgent or emergent medical complaints. There is no emergent or urgent medical need at this time. I instructed the patient to follow up with their primary care provider. A medical screening exam was performed: At the time of evaluation the presenting medical condition was determined not to be of an emergent nature. The patient was given the option of receiving additional care, but declined. Patient was given options for additional community resources from which to obtain care. The Patient Has Been advised to seek medical attention for their presenting complaint. The patient has been advised to return to the ER at any time if an emergent condition develops. Primary Impression: Encounter for medical screening examination Condition: Stable Miriam Mosqueda Jan 03, 2017 16:37
== END 2017-01-03 16:46 | disposition left against medical advice (07) ==
LOC: EDTENT 15:29
DX: Z00.8 Encounter for other general examination (principal); M54.5 Low back pain
CPT/HCPCS: 99281

== ENCOUNTER 2017-01-04 00:58 | Emergency (ER) | payer MEDICARE, OTHER ==
[~2017-01-04] VITALS: Ht 180.3 cm; Wt 72.0 kg
[2017-01-04 01:00] VITALS: BP 123/81; PULSE 90; RESP 16; TEMP 98.6; O2SAT 98
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
== END 2017-01-04 03:36 | disposition home or self-care (01) ==
LOC: NEPD 00:58
DX: R45.851 Suicidal ideations (principal); F20.9 Schizophrenia, unspecified; Z76.5 Malingerer [conscious simulation]
CPT/HCPCS: 99283

== ENCOUNTER 2017-01-04 13:15 | Emergency (ER) | payer MEDICARE, OTHER ==
[~2017-01-04] VITALS: Ht 180.3 cm; Wt 70.0 kg
[2017-01-04 13:18] VITALS: BP 132/76; PULSE 90; RESP 20; TEMP 97.7; O2SAT 98
--- NOTE | 2017-01-04 13:50 | PD ---
HPI . wants a seroqul rx change Chief Complaint: Medication Refill Request Time Seen by Provider: 13:48 Travel History International Travel<30 days: No Contact w/Intl Traveler<30days: No Traveled to known affect area: No History of Present Illness HPI 41-year-old male here requesting a prescription change for Seroquel. Apparently patient was seen @ [facility] and given 100 mg and would like 50 mg. He has no specific complaints. He is not suicidal or homicidal. History Past Medical Histgory Hx Chemotherapy: No Social History Alcohol Use: No Tobacco Use: Yes Allergies-Medications (Allergen,Severity, Reaction): Coded Allergies: grass pollen (Unverified Allergy, Mild, SNEEZING, ITCHING, 01/04/17) Uncoded Allergies: Seasonal Allergies (Allergy, Unknown, 02/13/13) Per pt. Reported Meds & Prescriptions Reported Meds & Active Scripts Active Seroquel (Quetiapine Fumarate) 50 Mg Tab 50 Mg PO HS Reported Hydrochlorothiazide 12.5 Mg Tab 12.5 Mg PO DAILY Acyclovir 400 Mg Tab 400 Mg PO QID Benztropine (Benztropine Mesylate) 0.5 Mg Tab 2 Mg PO HS Nexium (Esomeprazole DR) 20 Mg Capdr 20 Mg PO DAILY Buspirone (Buspirone HCl) 15 Mg Tab 15 Mg PO TID Banophen (Diphenhydramine HCl) 25 Mg Cap 25 Mg PO HS Review of Systems General / Constitutional: No: Fever Eyes: No: Visual changes HENT: No: Headaches Cardiovascular: No: Chest Pain or Discomfort Respiratory: No: Shortness of Breath Gastrointestinal: No: Abdominal Pain Genitourinary: No: Dysuria Musculoskeletal: No: Pain Skin: No Rash Neurologic: No: Weakness Psychiatric: No: Depression Endocrine: No: Polydipsia Hematologic/Lymphatic: No: Easy Bruising Physical Exam Narrative GENERAL: AAO x 3, no acute distress, Well-nourished, well-developed patient. SKIN: Warm and dry. No visible rashes or bruising. HEAD: Normocephalic and atraumatic. EYES: No scleral icterus. No injection or drainage. ENT: No nasal drainage noted. Mucous membranes pink. Airway patent. NECK: Supple, trachea midline. No JVD. CARDIOVASCULAR: Regular rate and rhythm without murmurs, gallops, or rubs. RESPIRATORY: Breath sounds equal bilaterally. No accessory muscle use. No rhonchi or rales. GASTROINTESTINAL: Visual inspection normal EXTREMITIES: No cyanosis or edema. BACK: Nontender without obvious deformity. No CVA tenderness. NEURO: CN II-12 intact PSYCH: AAO x 3, normal affect. Data Data Last Documented VS Vital Signs Date Time Temp Pulse Resp B/P (MAP) Pulse Ox O2 Delivery O2 Flow Rate FiO2 01/04/17 13:18 97.7 90 20 132/76 (94) 98 Room Air MDM Medical Screen Exam Complete: Yes Emergency Medical Condition: No Differential Diagnosis medication refill, medical clearance Narrative Course A medical screening exam was performed: At the time of evaluation the presenting medical condition was determined not to be of an emergent nature. The patient was given the option of receiving additional care, but declined. Patient was given options for additional community resources from which to obtain care. The Patient Has Been advised to seek medical attention for their presenting complaint. The patient has been advised to return to the ER at any time if an emergent condition develops. Primary Impression: Encounter for medical screening examination Condition: Stable Fang Kerns Jan 04, 2017 13:50
== END 2017-01-04 13:53 | disposition left against medical advice (07) ==
LOC: NETRI 13:15
DX: Z76.0 Encounter for issue of repeat prescription (principal)
CPT/HCPCS: 99281

== ENCOUNTER 2017-01-04 22:33 | Emergency (ER) | payer MEDICARE, OTHER ==
[~2017-01-04] VITALS: Ht 188 cm; Wt 77.0 kg
[2017-01-04 22:35] VITALS: BP 132/85; PULSE 104; RESP 16; TEMP 98.4; O2SAT 98
[2017-01-04] MEDS ORDERED: SODIUM CHLOR 0.9% 1000 ML INJ 1,000 ML IV ONE ×2 (23:30)
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
[2017-01-04 23:51] LABS: BLOOD, URINE NEG (NEG); CALCIUM OXALATE CRYSTALS,URINE FEW /hpf; COMMENT (UR) CULT NOT INDICATED; CULTURE IF INDICATED CULT NOT INDICATED; GLUCOSE,URINE NEG (NEG); KETONE, URINE NEG (NEG); MUCUS URINE FEW /lpf (OCC); NITRITE,URINE NEG (NEG); PH, URINE 5.5 (5.0-8.5); URINE COLOR YELLOW (YELLW/STRAW)
[2017-01-05 00:17] LABS: CREATINE KINASE 696 U/L (39-308)
[2017-01-05 00:33] LABS: CKMB 7.2 NG/ML (0.5-3.6)
[2017-01-05 01:40] VITALS: BP 128/82; PULSE 99; RESP 18; O2SAT 99
[2017-01-05 01:49] LABS: BLOOD UREA NITROGEN 26 MG/DL (7-18); CHLORIDE 110 MEQ/L (98-107); GLOMERULAR FILTRATION RATE 80 ML/MIN (>89); SODIUM (NA) 141 MEQ/L (136-145)
[2017-01-05 02:00] LABS: ANION GAP 8 MEQ/L (5-15)
[2017-01-05 02:32] LABS: ALCOHOL LESS THAN 3 MG/DL (0-5)
[2017-01-05 05:27] VITALS: BP 98/58; PULSE 63; RESP 16; O2SAT 98
[2017-01-05 08:47] VITALS: BP 115/68; PULSE 79; RESP 18; TEMP 98.5; O2SAT 98
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
== END 2017-01-05 11:46 | disposition home or self-care (01) ==
LOC: NEPD 22:33 → NEPB 01-05 11:46
DX: F20.0 Paranoid schizophrenia (principal); Z76.5 Malingerer [conscious simulation]
CPT/HCPCS: 80048; 80307; 81001; 82550; 82552; 96360; 99284; J7030

== ENCOUNTER 2017-01-05 17:59 | Emergency (ER) | payer MEDICARE, OTHER ==
[~2017-01-05] VITALS: Ht 180.3 cm; Wt 75.0 kg
[2017-01-05 18:12] VITALS: BP 122/76; PULSE 88; RESP 20; TEMP 97.7; O2SAT 97
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
== END 2017-01-05 18:47 | disposition left against medical advice (07) ==
LOC: NEPD 17:59
DX: Z00.8 Encounter for other general examination (principal); F20.9 Schizophrenia, unspecified
CPT/HCPCS: 99281

== ENCOUNTER 2017-01-13 21:26 | Emergency (ER) | payer MEDICARE, OTHER ==
[2017-01-13 21:47] VITALS: BP 138/72; PULSE 86; RESP 16; TEMP 98; O2SAT 100
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
== END 2017-01-13 23:58 | disposition home or self-care (01) ==
LOC: NEPD 21:26
DX: F20.0 Paranoid schizophrenia (principal); Z76.5 Malingerer [conscious simulation]
CPT/HCPCS: 99283

== ENCOUNTER 2017-01-14 03:04 | Emergency (ER) | payer MEDICARE, OTHER ==
[~2017-01-14] VITALS: Ht 180.3 cm; Wt 70.0 kg
[2017-01-14 03:05] VITALS: BP 138/90; PULSE 94; RESP 18; TEMP 98; O2SAT 99
--- NOTE | 2017-01-14 03:17 | PD ---
HPI Chief Complaint: Psychiatric Symptoms Time Seen by Provider: 03:16 Travel History International Travel<30 days: No Contact w/Intl Traveler<30days: No Traveled to known affect area: No History of Present Illness HPI 41-year-old male presents again to the emergency department today for psychiatric evaluation. Patient states that when he left here, he had nowhere to go, so he thinks he might want to hurt somebody. When confronted about this , patient states that he does not know how to get to [facility]. He has no suicidal ideations. He states he does not want to hurt anybody, he just does not want demonstrates. He has no other symptoms reported this time. History Past Medical Histgory Hx Chemotherapy: No Social History Alcohol Use: No Tobacco Use: Yes (/2 PPD) Allergies-Medications (Allergen,Severity, Reaction): Coded Allergies: grass pollen (Unverified Allergy, Mild, SNEEZING, ITCHING, 01/14/17) Uncoded Allergies: Seasonal Allergies (Allergy, Unknown, 02/13/13) Per pt. Reported Meds & Prescriptions Reported Meds & Active Scripts Active Seroquel (Quetiapine Fumarate) 50 Mg Tab 50 Mg PO HS Reported Hydrochlorothiazide 12.5 Mg Tab 12.5 Mg PO DAILY Acyclovir 400 Mg Tab 400 Mg PO QID Benztropine (Benztropine Mesylate) 0.5 Mg Tab 2 Mg PO HS Nexium (Esomeprazole DR) 20 Mg Capdr 20 Mg PO DAILY Buspirone (Buspirone HCl) 15 Mg Tab 15 Mg PO TID Banophen (Diphenhydramine HCl) 25 Mg Cap 25 Mg PO HS Review of Systems Except as stated in HPI: all other systems reviewed are Neg Physical Exam Narrative GENERAL: Well-nourished, well-developed male patient, ambulatory and in no acute distress. SKIN: Focused skin assessment warm/dry. HEAD: Normocephalic. EYES: No scleral icterus. No injection or drainage. NECK: Supple, trachea midline. No JVD or lymphadenopathy. CARDIOVASCULAR: Elevated rate and rhythm without murmurs, gallops, or rubs. RESPIRATORY: Breath sounds equal bilaterally. No accessory muscle use. GASTROINTESTINAL: Abdomen soft, non-tender, nondistended. MUSCULOSKELETAL: No cyanosis, or edema. BACK: Nontender without obvious deformity. No CVA tenderness. Data Data Last Documented VS Vital Signs Date Time Temp Pulse Resp B/P (MAP) Pulse Ox O2 Delivery O2 Flow Rate FiO2 01/14/17 03:05 98.0 94 18 138/90 (106) 99 MDM Medical Screen Exam Complete: Yes Emergency Medical Condition: No Differential Diagnosis Malingering, mood disorder Narrative Course 41-year-old male presents to emergency department for evaluation. Patient has been here 2 times today already. He has no acute medical needs. He has been given 2 bus passes and is very pleased with this. At this time there is no urgent or emergent need for medical admission identified. A medical screening exam was performed: At the time of evaluation the presenting medical condition was determined not to be of an emergent nature. The patient was given the option of receiving additional care, but declined. Patient was given options for additional community resources from which to obtain care. The Patient Has Been advised to seek medical attention for their presenting complaint. The patient has been advised to return to the ER at any time if an emergent condition develops. Primary Impression: Encounter for medical screening examination Additional Impression: Malingering Condition: Stable Meli Mcdaniel Jan 14, 2017 03:17
== END 2017-01-14 03:20 | disposition left against medical advice (07) ==
LOC: NEPD 03:04
DX: Z76.5 Malingerer [conscious simulation] (principal)
CPT/HCPCS: 99281

== ENCOUNTER 2017-01-14 13:10 | Emergency (ER) | payer MEDICARE, OTHER ==
[2017-01-14 13:11] VITALS: BP 156/90; PULSE 100; RESP 20; TEMP 97.9; O2SAT 98
--- NOTE | 2017-01-14 13:30 | PD ---
Physical Exam Date Seen by Provider: Jan 14, 2017 Time Seen by Provider: 13:25 Narrative 41-year-old Afro-[place]i male sent here by [facility] with history of paranoid schizophrenia with history of suicidal and homicidal ideation this morning. Patient was sent here by [facility] for evaluation. Patient is currently not on any medication although he is supposed to be. 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 Patient estimates he's been off his meds for about a week and a half to 2 weeks. Patient complains of right arm pain for the past month. Patient also complains of groin pain and tingling in his penis for approximately one month. He has no known drug allergies Psychiatric labs started. Vital signs reviewed. Patient is awaiting that bed placement. Data Data Last Documented VS Vital Signs Date Time Temp Pulse Resp B/P (MAP) Pulse Ox O2 Delivery O2 Flow Rate FiO2 01/14/17 13:11 97.9 100 20 156/90 (112) 98 Room Air [facility] Medical Record Reviewed: Yes Supervised Visit with CATARINA: Yes Condition: Stable Denilson Arora Jan 14, 2017 13:30
[2017-01-14 14:18] LABS: BASOPHIL % 0.4 % (0.0-2.0); EOSINOPHIL % 0.3 % (0.0-4.0); HEMATOCRIT 43.8 % (39.0-51.0); HEMO FLAGS DIFF FINAL; LYMPH % 17.5 % (9.0-44.0); LYMPHOCYTE # 1.2 TH/MM3 (1.0-4.8); MEAN CELL VOLUME 96.7 FL (80.0-100.0); MEAN CORPUSCULAR HEMOGLOBIN 32.5 PG (27.0-34.0); MEAN CORPUSCULAR HGB CONC 33.6 % (32.0-36.0); MONO % 6.9 % (0.0-8.0); NEUT % 74.9 % (16.0-70.0); PLATELET COUNT 263 TH/MM3 (150-450); RED BLOOD COUNT 4.53 MIL/MM3 (4.50-5.90); RED CELL DISTRIBUTION WIDTH 13.1 % (11.6-17.2); WHITE BLOOD COUNT 6.7 TH/MM3 (4.0-11.0)
[2017-01-14 14:35] LABS: ANION GAP 7 MEQ/L (5-15); AST (GOT) 31 U/L (15-37); BICARBONATE 26.7 MEQ/L (21.0-32.0); BLOOD UREA NITROGEN 16 MG/DL (7-18); CHLORIDE 105 MEQ/L (98-107); GLOMERULAR FILTRATION RATE 97 ML/MIN (>89); POTASSIUM 4.1 MEQ/L (3.5-5.1); SODIUM (NA) 139 MEQ/L (136-145)
[2017-01-14 14:36] LABS: ALT (GPT) 43 U/L (12-78)
[2017-01-14 14:38] LABS: ALKALINE PHOSPHATASE 61 U/L (45-117); TOTAL BILIRUBIN ADULT 0.6 MG/DL (0.2-1.0)
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
[2017-01-14 17:18] VITALS: BP 108/63; PULSE 69; RESP 18; TEMP 97.9; O2SAT 97
[2017-01-14 22:11] VITALS: BP 113/57; PULSE 74; RESP 18
[2017-01-15 06:32] VITALS: BP 124/59; PULSE 61; RESP 18
[2017-01-15] MEDS ORDERED: ACETAMINOPHEN 325 MG TAB PO ONE (09:45)
[2017-01-15] MEDS ORDERED: LORazepam 2 MG/ML VIAL IV PUSH ONE (09:45)
[2017-01-15] MEDS ORDERED: LORazepam 2 MG/ML VIAL IM ONE (10:00)
[2017-01-15 10:52] VITALS: BP 117/67; PULSE 93; RESP 20
--- NOTE | 2017-01-15 12:45 | PD ---
History of Present Illness Chief Complaint: Psychiatric Symptoms Time Seen by Provider: 12:15 Travel History International Travel<30 Days: No Contact w/Intl Traveler<30days: No Known affected area: No Legal Status Legal Status: Cotton Act Cotton Act Signed By: History of Present Illness: 41-year-old male with history of schizophrenia, off medications, presents with suicidal and homicidal ideation. Patient Lula acted by [facility] emergency physician. Patient wants to leave and denies any suicidal or homicidal ideation , plan or intent. He is calm, pleasant and cooperative. He exhibits no psychosis. His cognition is intact. He is verbally rl for safety and he is competent to do so. He is homeless but would rather live on the street then stay in the emergency department. He is competent to make these decisions. He is being offered medication by this physician although he is followed at [facility] Past Medical History Hx Anticoagulant Therapy: No Arthritis: No Asthma: No Autoimmune Disease: No Anxiety: Yes (WITH PANIC ATTACKS) Depression: Yes Heart Rhythm Problems: No Cardiovascular Problems: Yes (htn) High Cholesterol: Yes Chemotherapy: No Chest Pain: No Congestive Heart Failure: No COPD: No Cerebrovascular Accident: No Diabetes: No Diminished Hearing: No Endocrine: No Gastrointestinal Disorders: Yes (HX OF HEMMORHOIDECTOMY) GERD: Yes Glaucoma: No Genitourinary: Yes (GENITAL HERPES) Hepatitis: No Hiatal Hernia: No Hypertension: No Immune Disorder: No Implanted Vascular Access Dvce: No Kidney Stones: No Musculoskeletal: No Neurologic: Yes (HX OF BELLS PALSY) Psychiatric: Yes Reproductive: No Respiratory: No Immunizations Current: No Myocardial Infarction: No Renal Failure: No Schizophrenia: Yes (PARANOID) Sleep Apnea: No Thyroid Disease: No Ulcer: No Past Surgical History Abdominal Surgery: No AICD: No Cardiac Surgery: No Ear Surgery: No Endocrine Surgery: No Eye Surgery: No Genitourinary Surgery: No Gynecologic Surgery: No Hysterectomy: No Insulin Pump: No Neurologic Surgery: No Oral Surgery: No Pacemaker: No Thoracic Surgery: No Psychiatric History Psychiatric History Hx Psychiatric Treatment: schizophrenia, substance abuse dependence, anxiety, depression Receives care at [facility] History of Inpatient Treatment: Yes Guns or firearms in home: No Social History Hx Alcohol Use: No Hx Tobacco Use: Yes (1/2 PPD) Hx Substance Use: No (7 MONTHS CLEAN PER PT) Substance Use Type: Alcohol, Crack, Marijuana, Ecstasy, Nicotine/Cigarettes, Heroin Other Substances Used: Pt. 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 Hx of Substance Use Treatment: Yes Allergies-Medications (Allergen,Severity, Reaction): Coded Allergies: grass pollen (Verified Allergy, Mild, SNEEZING, ITCHING, 01/14/17) Uncoded Allergies: Seasonal Allergies (Allergy, Unknown, 02/13/13) Per pt. Reported Meds & Prescriptions Reported Meds & Active Scripts Active Seroquel (Quetiapine Fumarate) 50 Mg Tab 50 Mg PO HS Reported Hydrochlorothiazide 12.5 Mg Tab 12.5 Mg PO DAILY Acyclovir 400 Mg Tab 400 Mg PO QID Benztropine (Benztropine Mesylate) 0.5 Mg Tab 2 Mg PO HS Nexium (Esomeprazole DR) 20 Mg Capdr 20 Mg PO DAILY Buspirone (Buspirone HCl) 15 Mg Tab 15 Mg PO TID Banophen (Diphenhydramine HCl) 25 Mg Cap 25 Mg PO HS Review of Systems Except as stated in HPI: all other systems reviewed are Neg Exam Alert: Yes [place]: Person, Place, Date, Situation Mood: Calm Affect: Appropriate, Euthymic Speech: Clear, Logical Eye Contact: Normal Memory Intact: Immediate, Recent, Remote Delusions: No Insight/Judgement Adequate MDM Medical Decision Making Medical Record Reviewed: Yes Assessment/Plan Patient interviewed at bedside, medical record reviewed and case discussed with nurseAsuncion. Patient does not qualify for Cotton act or involuntary psychiatric hospitalization at this time. He denies suicidal or homicidal ideation, plan or intent and he is verbally rl for safety. He is competent to do so and least restrictive alternative or house for him to be treated on an outpatient basis. This physician didn't provide prescriptions for his last known medicines. Orders Orders Complete Blood Count With Diff (01/14/17 13:30) Comprehensive Metabolic Panel (01/14/17 13:30) Psych Screen (01/14/17 13:30) Drug Screen, Random Urine (01/14/17 13:30) Diet Regular Basic (01/15/17 Breakfast) Diet Regular Basic (01/15/17 Lunch) Lorazepam Inj (Ativan Inj) (01/15/17 09:45) Acetaminophen (Tylenol) (01/15/17 09:45) Lorazepam Inj (Ativan Inj) (01/15/17 10:00) Results Vital Signs Date Time Temp Pulse Resp B/P (MAP) Pulse Ox O2 Delivery O2 Flow Rate FiO2 01/15/17 10:52 93 20 117/67 (84) 01/15/17 06:32 61 18 124/59 (80) 01/14/17 22:11 74 18 113/57 (75) 01/14/17 17:18 97.9 69 18 108/63 (78) 97 Room Air 01/14/17 13:11 97.9 100 20 156/90 (112) 98 Room Air Laboratory Tests Test 01/14/17 13:35 White Blood Count 6.7 Red Blood Count 4.53 Hemoglobin 14.7 Hematocrit 43.8 Mean Corpuscular Volume 96.7 Mean Corpuscular Hemoglobin 32.5 Mean Corpuscular Hemoglobin Concent 33.6 Red Cell Distribution Width 13.1 Platelet Count 263 Mean Platelet Volume 7.9 Neutrophils (%) (Auto) 74.9 Lymphocytes (%) (Auto) 17.5 Monocytes (%) (Auto) 6.9 Eosinophils (%) (Auto) 0.3 Basophils (%) (Auto) 0.4 Neutrophils # (Auto) 5.0 Lymphocytes # (Auto) 1.2 Monocytes # (Auto) 0.5 Eosinophils # (Auto) 0.0 Basophils # (Auto) 0.0 CBC Comment DIFF FINAL Differential Comment Blood Urea Nitrogen 16 Creatinine 1.03 Random Glucose 159 Total Protein 7.8 Albumin 4.0 Calcium Level 9.4 Alkaline Phosphatase 61 Aspartate Amino Transf (AST/SGOT) 31 Alanine Aminotransferase (ALT/SGPT) 43 Total Bilirubin 0.6 Sodium Level 139 Potassium Level 4.1 Chloride Level 105 Carbon Dioxide Level 26.7 Anion Gap 7 Estimat Glomerular Filtration Rate 97 Urine Opiates Screen NEG Urine Barbiturates Screen NEG Urine Amphetamines Screen NEG Urine Benzodiazepines Screen NEG Urine Cocaine Screen NEG Urine Cannabinoids Screen NEG Diagnosis Primary Impression: Chronic paranoid schizophrenia Condition: Stable Sabino Salmon MD Jan 15, 2017 12:45
[2017-01-15 12:53] VITALS: BP 117/64
--- NOTE | 2017-01-15 13:15 | PD ---
Physical Exam Date Seen by Provider: Jan 15, 2017 Time Seen by Provider: 13:10 Narrative 41-year-old male that presents to the ED for evaluation of sucidal ideation and psychiatric illness. Patient was initially seen by Dr Valdez who lula acted the patient and was medically cleared. Patient was seen by the psychiatrist today and was deemed to be cleared to go outpatient. Lula act was lifted by him. Please refer to previous provider notes. I was asked to disposition the patient. Data Data Last Documented VS Vital Signs Date Time Temp Pulse Resp B/P (MAP) Pulse Ox O2 Delivery O2 Flow Rate FiO2 01/15/17 12:53 93 20 117/64 (81) 01/14/17 17:18 97.9 97 Room Air Orders Orders Complete Blood Count With Diff (01/14/17 13:30) Comprehensive Metabolic Panel (01/14/17 13:30) Psych Screen (01/14/17 13:30) Drug Screen, Random Urine (01/14/17 13:30) Diet Regular Basic (01/15/17 Breakfast) Diet Regular Basic (01/15/17 Lunch) Lorazepam Inj (Ativan Inj) (01/15/17 09:45) Acetaminophen (Tylenol) (01/15/17 09:45) Lorazepam Inj (Ativan Inj) (01/15/17 10:00) Labs Laboratory Tests Test 01/14/17 13:35 White Blood Count 6.7 TH/MM3 Red Blood Count 4.53 MIL/MM3 Hemoglobin 14.7 GM/DL Hematocrit 43.8 % Mean Corpuscular Volume 96.7 FL Mean Corpuscular Hemoglobin 32.5 PG Mean Corpuscular Hemoglobin Concent 33.6 % Red Cell Distribution Width 13.1 % Platelet Count 263 TH/MM3 Mean Platelet Volume 7.9 FL Neutrophils (%) (Auto) 74.9 % Lymphocytes (%) (Auto) 17.5 % Monocytes (%) (Auto) 6.9 % Eosinophils (%) (Auto) 0.3 % Basophils (%) (Auto) 0.4 % Neutrophils # (Auto) 5.0 TH/MM3 Lymphocytes # (Auto) 1.2 TH/MM3 Monocytes # (Auto) 0.5 TH/MM3 Eosinophils # (Auto) 0.0 TH/MM3 Basophils # (Auto) 0.0 TH/MM3 CBC Comment DIFF FINAL Differential Comment Blood Urea Nitrogen 16 MG/DL Creatinine 1.03 MG/DL Random Glucose 159 MG/DL Total Protein 7.8 GM/DL Albumin 4.0 GM/DL Calcium Level 9.4 MG/DL Alkaline Phosphatase 61 U/L Aspartate Amino Transf (AST/SGOT) 31 U/L Alanine Aminotransferase (ALT/SGPT) 43 U/L Total Bilirubin 0.6 MG/DL Sodium Level 139 MEQ/L Potassium Level 4.1 MEQ/L Chloride Level 105 MEQ/L Carbon Dioxide Level 26.7 MEQ/L Anion Gap 7 MEQ/L Estimat Glomerular Filtration Rate 97 ML/MIN Urine Opiates Screen NEG Urine Barbiturates Screen NEG Urine Amphetamines Screen NEG Urine Benzodiazepines Screen NEG Urine Cocaine Screen NEG Urine Cannabinoids Screen NEG MDM Medical Record Reviewed: Yes Supervised Visit with CATARINA: No Differential Diagnosis schizophrenia vs cotton act vs malingering vs mood disorder vs suicidal ideation Narrative Course 41-year-old male that presents to the ED for evaluation of sucidal ideation and psychiatric illness. Patient was initially seen by Dr Valdez who lula acted the patient and was medically cleared. Patient was seen by the psychiatrist today and was deemed to be cleared to go outpatient. Cotton act was lifted by him. Please refer to previous provider notes. I was asked to disposition the patient. At this time patient was told to follow-up outpatient. Labs were clear. Patient was given instructions as to where he can go to get care for psychiatric evaluation. He agrees and understands. Follow with PCP. See ED worsening symptoms. Diagnosis Primary Impression: Chronic paranoid schizophrenia Patient Instructions: General Instructions Departure Forms: Tests/Procedures Additional Instruction: GIVEN HOMELESS PACKET AND SERVICES. Follow up with PCP. See ED if worst. Disposition: 01 DISCHARGE HOME Condition: Stable Melo Metcalf Jan 15, 2017 13:15
== END 2017-01-15 13:45 | disposition home or self-care (01) ==
LOC: NEPD 13:10 → NEPJ 01-15 13:45
DX: F20.0 Paranoid schizophrenia (principal); R45.851 Suicidal ideations; R45.850 Homicidal ideations; K21.9 Gastro-esophageal reflux disease without esophagitis; Z59.0 Homelessness; F17.200 Nicotine dependence, unspecified, uncomplicated
CPT/HCPCS: 80053; 80307; 85025; 96372; 99284; J2060

== ENCOUNTER 2017-01-15 21:31 | Emergency (ER) | payer MEDICARE, OTHER ==
[~2017-01-15] VITALS: Ht 182.9 cm; Wt 75.0 kg
--- NOTE | 2017-01-15 21:50 | PD ---
HPI Chief Complaint: nee Time Seen by Provider: 21:49 Travel History International Travel<30 days: No Contact w/Intl Traveler<30days: No Traveled to known affect area: No History Past Medical Histgory Hx Chemotherapy: No Social History Alcohol Use: No Tobacco Use: Yes (1/2 PPD) Allergies-Medications (Allergen,Severity, Reaction): Coded Allergies: grass pollen (Verified Allergy, Mild, SNEEZING, ITCHING, 01/14/17) Uncoded Allergies: Seasonal Allergies (Allergy, Unknown, 02/13/13) Per pt. Reported Meds & Prescriptions Reported Meds & Active Scripts Active Seroquel (Quetiapine Fumarate) 50 Mg Tab 50 Mg PO HS Reported Hydrochlorothiazide 12.5 Mg Tab 12.5 Mg PO DAILY Acyclovir 400 Mg Tab 400 Mg PO QID Benztropine (Benztropine Mesylate) 0.5 Mg Tab 2 Mg PO HS Nexium (Esomeprazole DR) 20 Mg Capdr 20 Mg PO DAILY Buspirone (Buspirone HCl) 15 Mg Tab 15 Mg PO TID Banophen (Diphenhydramine HCl) 25 Mg Cap 25 Mg PO HS Meli Mcdaniel Jan 15, 2017 21:50
--- NOTE | 2017-01-15 21:52 | PD ---
HPI Chief Complaint: ba Time Seen by Provider: 21:49 Travel History International Travel<30 days: No Contact w/Intl Traveler<30days: No Traveled to known affect area: No History of Present Illness HPI 41-year-old male with history of schizophrenia, seen multiple times in the emergency department due to having no place to stay. Presents again today under a Cotton act. Patient allegedly went to police and told them that he wanted to kill them. This resulted in him being placed under a Cotton act. Patient tells me that the [employer] voucher he has is no good because it is not open. Patient was provided bus passes upon his most recent discharge. He is telling me that we have wasted his time. He denies suicidal or homicidal ideations at this time. States that he would like a cup of coffee and help him getting a place. PFSH Past Medical History Hx Anticoagulant Therapy: No Arthritis: No Asthma: No Autoimmune Disease: No Anxiety: Yes (WITH PANIC ATTACKS) Depression: Yes Heart Rhythm Problems: No Cardiovascular Problems: Yes (htn) High Cholesterol: Yes Chemotherapy: No Chest Pain: No Congestive Heart Failure: No COPD: No Cerebrovascular Accident: No Diabetes: No Diminished Hearing: No Endocrine: No Gastrointestinal Disorders: Yes (HX OF HEMMORHOIDECTOMY) GERD: Yes Glaucoma: No Genitourinary: Yes (GENITAL HERPES) Hepatitis: No Hiatal Hernia: No Hypertension: No Immune Disorder: No Implanted Vascular Access Dvce: No Kidney Stones: No Musculoskeletal: No Neurologic: Yes (HX OF BELLS PALSY) Psychiatric: Yes Reproductive: No Respiratory: No Immunizations Current: No Myocardial Infarction: No Renal Failure: No Schizophrenia: Yes (PARANOID) Sleep Apnea: No Thyroid Disease: No Ulcer: No Past Surgical History Abdominal Surgery: No AICD: No Cardiac Surgery: No Ear Surgery: No Endocrine Surgery: No Eye Surgery: No Genitourinary Surgery: No Gynecologic Surgery: No Hysterectomy: No Insulin Pump: No Neurologic Surgery: No Oral Surgery: No Pacemaker: No Thoracic Surgery: No Social History Alcohol Use: No Tobacco Use: Yes (1/2 PPD) Substance Use: No (7 MONTHS CLEAN PER PT) Allergies-Medications (Allergen,Severity, Reaction): Coded Allergies: grass pollen (Verified Allergy, Mild, SNEEZING, ITCHING, 01/14/17) Uncoded Allergies: Seasonal Allergies (Allergy, Unknown, 02/13/13) Per pt. Reported Meds & Prescriptions Reported Meds & Active Scripts Active Seroquel (Quetiapine Fumarate) 50 Mg Tab 50 Mg PO HS Reported Hydrochlorothiazide 12.5 Mg Tab 12.5 Mg PO DAILY Acyclovir 400 Mg Tab 400 Mg PO QID Benztropine (Benztropine Mesylate) 0.5 Mg Tab 2 Mg PO HS Nexium (Esomeprazole DR) 20 Mg Capdr 20 Mg PO DAILY Buspirone (Buspirone HCl) 15 Mg Tab 15 Mg PO TID Banophen (Diphenhydramine HCl) 25 Mg Cap 25 Mg PO HS Review of Systems Except as stated in HPI: all other systems reviewed are Neg Physical Exam Narrative GENERAL: Well-nourished, well-developed male patient, ambulatory no acute distress. SKIN: Focused skin assessment warm/dry. HEAD: Normocephalic. EYES: No scleral icterus. No injection or drainage. NECK: Supple, trachea midline. No JVD or lymphadenopathy. CARDIOVASCULAR: Regular rate and rhythm without murmurs, gallops, or rubs. RESPIRATORY: Breath sounds equal bilaterally. No accessory muscle use. GASTROINTESTINAL: Abdomen soft, non-tender, nondistended. MUSCULOSKELETAL: No cyanosis, or edema. BACK: Nontender without obvious deformity. No CVA tenderness. Data Data Last Documented VS Vital Signs Date Time Temp Pulse Resp B/P (MAP) Pulse Ox O2 Delivery O2 Flow Rate FiO2 01/15/17 23:23 80 18 105/59 (74) 01/15/17 21:56 98.6 98 Orders Orders Psych Screen (01/15/17 22:54) [facility] Medical Decision Making Medical Screen Exam Complete: Yes Emergency Medical Condition: Yes Medical Record Reviewed: Yes Differential Diagnosis Malingering versus mood disorder versus personality disorder versus adjustment reaction disorder Narrative Course 41-year-old male presents to the emergency department under a Cotton act for psychiatric evaluation. Patient appears without distress. He denies suicidal or homicidal ideations. Is requesting us to help him find a place to stay. I will not be repeating lab work on this patient. He is medically cleared to undergo psychiatric screening for further evaluation and disposition. Mental health screening discussed with the patient. Psychiatric screen ordered. Diagnosis Primary Impression: Encounter for medical screening examination Additional Impression: Malingering Condition: Stable Meli Mcdaniel Jan 15, 2017 21:52
[2017-01-15 21:56] VITALS: BP 135/72; PULSE 68; RESP 20; TEMP 98.6; O2SAT 98
[2017-01-15 23:23] VITALS: BP 105/59; PULSE 80; RESP 18
[2017-01-16 06:10] VITALS: BP 134/60; PULSE 68; RESP 18
[2017-01-16 11:09] VITALS: BP 128/85; PULSE 85; RESP 18; O2SAT 99
[2017-01-16 11:14] VITALS: BP 128/85; PULSE 85; RESP 18; O2SAT 99
--- NOTE | 2017-01-16 11:15 | PD ---
Physical Exam Date Seen by Provider: Jan 16, 2017 Time Seen by Provider: 11:13 Narrative 41-year-old male with history of schizophrenia previously Cotton acted, and seen by Dr. Salmon. Patient has been cleared of psychiatric need for hospitalization. Patient currently has no medical issues. Patient has follow- up tomorrow with [facility] for his medication management. Patient is medically cleared and psychiatrically cleared for discharge Data Data Last Documented VS Vital Signs Date Time Temp Pulse Resp B/P (MAP) Pulse Ox O2 Delivery O2 Flow Rate FiO2 01/16/17 11:09 85 18 128/85 (99) 99 Room Air 01/15/17 21:56 98.6 Orders Orders Psych Screen (01/15/17 22:54) Diet Regular Basic (01/16/17 Breakfast) Diet Regular Basic (01/16/17 Lunch) MDM Medical Record Reviewed: Yes Supervised Visit with CATARINA: Yes Narrative Course 41-year-old male with history of schizophrenia previously Cotton acted, and seen by Dr. Salmon. Patient has been cleared of psychiatric need for hospitalization. Patient currently has no medical issues. Patient has follow- up tomorrow with [facility] for his medication management. Patient is medically cleared and psychiatrically cleared for discharge Diagnosis Primary Impression: Encounter for medical screening examination Additional Impression: Malingering Referrals: [facility] day Patient Instructions: General Instructions Additional Instruction: 41-year-old male with history of schizophrenia previously Cotton acted, and seen by Dr. Salmon. Patient has been cleared of psychiatric need for hospitalization. Patient currently has no medical issues. Patient has follow- up tomorrow with [facility] for his medication management. Patient is medically cleared and psychiatrically cleared for discharge Disposition: 01 DISCHARGE HOME Condition: Stable Denilson Arora Jan 16, 2017 11:15
--- NOTE | 2017-01-16 11:18 | PD ---
History of Present Illness Chief Complaint: Psychiatric Symptoms Time Seen by Provider: 11:00 Travel History International Travel<30 Days: No Contact w/Intl Traveler<30days: No Known affected area: No Legal Status Legal Status: Cotton Act History of Present Illness: 41-year-old male with history of schizophrenia, presents under a Cotton act initiated last night for threats of killing a police cadet. Patient observed over night and evaluated by this physician this morning. Although he does have a history of schizophrenia, he is currently denying any suicidal or homicidal ideation, plan or intent. He has been off his medications but is willing to start back on them. He has an appointment at [facility] tomorrow morning and he intends to make this appointment. He also has prescriptions at his aunt's house and is willing to go there to get back on his medicines. He is calm, pleasant and cooperative at this time and verbally rl for safety. He is felt to be competent to do so. He is not complaining of psychotic symptoms at this time. PFSH Past Medical History Hx Anticoagulant Therapy: No Arthritis: No Asthma: No Autoimmune Disease: No Anxiety: Yes (WITH PANIC ATTACKS) Depression: Yes Heart Rhythm Problems: No Cardiovascular Problems: Yes (htn) High Cholesterol: Yes Chemotherapy: No Chest Pain: No Congestive Heart Failure: No COPD: No Cerebrovascular Accident: No Diabetes: No Diminished Hearing: No Endocrine: No Gastrointestinal Disorders: Yes (HX OF HEMMORHOIDECTOMY) GERD: Yes Glaucoma: No Genitourinary: Yes (GENITAL HERPES) Hepatitis: No Hiatal Hernia: No Hypertension: No Immune Disorder: No Implanted Vascular Access Dvce: No Kidney Stones: No Musculoskeletal: No Neurologic: Yes (HX OF BELLS PALSY) Psychiatric: Yes Reproductive: No Respiratory: No Immunizations Current: No Myocardial Infarction: No Renal Failure: No Schizophrenia: Yes (PARANOID) Sleep Apnea: No Thyroid Disease: No Ulcer: No Past Surgical History Abdominal Surgery: No AICD: No Cardiac Surgery: No Ear Surgery: No Endocrine Surgery: No Eye Surgery: No Genitourinary Surgery: No Gynecologic Surgery: No Hysterectomy: No Insulin Pump: No Neurologic Surgery: No Oral Surgery: No Pacemaker: No Thoracic Surgery: No Psychiatric History Psychiatric History Hx Psychiatric Treatment: schizophrenia, substance abuse dependence, anxiety, depression Receives care at [facility] History of Inpatient Treatment: Yes Guns or firearms in home: No Social History Hx Alcohol Use: No Hx Tobacco Use: Yes (1/2 PPD) Hx Substance Use: Yes (HX OF. REPORTS BEING SOBER FOR 6 MONTHS BUT HAD A BEER TONIGHT) Substance Use Type: Alcohol Other Substances Used: Pt. 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 Hx of Substance Use Treatment: Yes Allergies-Medications (Allergen,Severity, Reaction): Coded Allergies: grass pollen (Verified Allergy, Mild, SNEEZING, ITCHING, 01/14/17) Uncoded Allergies: Seasonal Allergies (Allergy, Unknown, 02/13/13) Per pt. Reported Meds & Prescriptions Reported Meds & Active Scripts Active Seroquel (Quetiapine Fumarate) 50 Mg Tab 50 Mg PO HS Reported Hydrochlorothiazide 12.5 Mg Tab 12.5 Mg PO DAILY Acyclovir 400 Mg Tab 400 Mg PO QID Benztropine (Benztropine Mesylate) 0.5 Mg Tab 2 Mg PO HS Nexium (Esomeprazole DR) 20 Mg Capdr 20 Mg PO DAILY Buspirone (Buspirone HCl) 15 Mg Tab 15 Mg PO TID Banophen (Diphenhydramine HCl) 25 Mg Cap 25 Mg PO HS Review of Systems Except as stated in HPI: all other systems reviewed are Neg Exam Alert: Yes [place]: Person, Place, Date, Situation Mood: Calm Affect: Appropriate Speech: Clear, Logical Eye Contact: Indirect Memory Intact: Immediate, Recent, Remote Insight/Judgement Adequate MDM Medical Decision Making Medical Record Reviewed: Yes Assessment/Plan Patient interviewed at bedside, chart reviewed and case discussed with nurse Manan and processing technologist Denilson. Least restrictive alternative allows for patient to have Cotton act lifted and patient to be treated on an outpatient basis. This is what the patient wants and this physician feels he is competent to make this choice. Therefore he is being discharged with follow up less than 24 hours away. Orders Orders Psych Screen (01/15/17 22:54) Diet Regular Basic (01/16/17 Breakfast) Diet Regular Basic (01/16/17 Lunch) Results Vital Signs Date Time Temp Pulse Resp B/P (MAP) Pulse Ox O2 Delivery O2 Flow Rate FiO2 01/16/17 11:09 85 18 128/85 (99) 99 Room Air 01/16/17 06:10 68 18 134/60 (84) 01/15/17 23:23 80 18 105/59 (74) 01/15/17 21:56 98.6 68 20 135/72 (93) 98 Diagnosis Primary Impression: Chronic paranoid schizophrenia Condition: Stable Sabino Salmon MD Jan 16, 2017 11:18
== END 2017-01-16 12:48 | disposition home or self-care (01) ==
LOC: NEPD 21:31 → NEPJ 01-16 12:48
DX: F20.0 Paranoid schizophrenia (principal); F17.200 Nicotine dependence, unspecified, uncomplicated; Z76.5 Malingerer [conscious simulation]
CPT/HCPCS: 99284; J2060

== ENCOUNTER 2017-01-16 16:15 | Emergency (ER) | payer MEDICARE, OTHER ==
[2017-01-16 16:17] VITALS: BP 126/79; PULSE 88; RESP 17; TEMP 98.4; O2SAT 96
--- NOTE | 2017-01-16 16:38 | PD ---
Physical Exam Date Seen by Provider: Jan 16, 2017 Time Seen by Provider: 16:36 Narrative 41 yo male here for evaluation of psych. Patient was recently discharge for evaluation of psych. Voluntary. Was just released. Was walking outside today and the wind was hot as well as it was hot outside and it caused him to be dehydrated. No suicidal or homicidal ideation. States that the resources that we gave him are not "open anymore". Unclear as to why he is here as he states he doesnt want to see a doctor. Vitals stable in triage. Awaiting bed placement. Data Data Last Documented VS Vital Signs Date Time Temp Pulse Resp B/P (MAP) Pulse Ox O2 Delivery O2 Flow Rate FiO2 01/16/17 16:17 98.4 88 17 126/79 (95) 96 MDM Medical Record Reviewed: Yes Supervised Visit with CATARINA: Melo Phelan Jan 16, 2017 16:38
== END 2017-01-16 16:59 | disposition left against medical advice (07) ==
LOC: NED 16:15
DX: F99 Mental disorder, not otherwise specified (principal)
CPT/HCPCS: 99281

== ENCOUNTER 2017-01-16 18:50 | Emergency (ER) | payer MEDICARE, OTHER ==
[2017-01-16 18:53] VITALS: BP 134/84; PULSE 80; RESP 14; TEMP 98.4; O2SAT 98
--- NOTE | 2017-01-16 19:06 | PD ---
Physical Exam Date Seen by Provider: Jan 16, 2017 Time Seen by Provider: 19:03 Narrative 41 yo male here for wrist pain. Has had it since a few hours. Was seen here earlier today and released this am from psychiatric area. Pain is 3/10. In no distress. Asks for gatorade and crackers provided on his last visit. Schizophrenia history. Vitals stable in triage. Awaiting bed placement. Data Data Last Documented VS Vital Signs Date Time Temp Pulse Resp B/P (MAP) Pulse Ox O2 Delivery O2 Flow Rate FiO2 01/16/17 18:53 98.4 80 14 134/84 (101) 98 MDM Medical Record Reviewed: Yes Supervised Visit with CATARINA: No Melo Metcalf Jan 16, 2017 19:06
--- NOTE | 2017-01-16 19:34 | PD ---
HPI Chief Complaint: Pain: Acute or Chronic Time Seen by Provider: 19:33 Travel History International Travel<30 days: No Contact w/Intl Traveler<30days: No Traveled to known affect area: No History of Present Illness HPI 41-year-old male, well-known to our emergency department with multiple visits seeking psychiatric assistance, malingering, presents today for evaluation of left wrist pain. Patient believes that the police but the handcuffs on him too tight the other day. Denies any other injury. Denies any limitations in range of motion. Denies any alterations in sensation. States that the pain is 3 out of 10. He has no other symptoms to report at this time. History Past Medical Histgory Hx Chemotherapy: No Social History Alcohol Use: No Tobacco Use: Yes (1/2 PPD) Allergies-Medications (Allergen,Severity, Reaction): Coded Allergies: grass pollen (Verified Allergy, Mild, SNEEZING, ITCHING, 01/16/17) Uncoded Allergies: Seasonal Allergies (Allergy, Unknown, 02/13/13) Per pt. Reported Meds & Prescriptions Reported Meds & Active Scripts Active Seroquel (Quetiapine Fumarate) 50 Mg Tab 50 Mg PO HS Reported Hydrochlorothiazide 12.5 Mg Tab 12.5 Mg PO DAILY Acyclovir 400 Mg Tab 400 Mg PO QID Benztropine (Benztropine Mesylate) 0.5 Mg Tab 2 Mg PO HS Nexium (Esomeprazole DR) 20 Mg Capdr 20 Mg PO DAILY Buspirone (Buspirone HCl) 15 Mg Tab 15 Mg PO TID Banophen (Diphenhydramine HCl) 25 Mg Cap 25 Mg PO HS Review of Systems Except as stated in HPI: all other systems reviewed are Neg Physical Exam Narrative GENERAL: Well-nourished, well-developed male patient in no acute distress SKIN: Focused skin assessment warm/dry. HEAD: Normocephalic. EYES: No scleral icterus. No injection or drainage. NECK: Supple, trachea midline. No JVD or lymphadenopathy. CARDIOVASCULAR: Regular rate and rhythm without murmurs, gallops, or rubs. RESPIRATORY: Breath sounds equal bilaterally. No accessory muscle use. GASTROINTESTINAL: Abdomen soft, non-tender, nondistended. MUSCULOSKELETAL: No cyanosis, or edema. No limitations range of motion. No deformity. Patient has 5+ strength equal operations controller strength bilaterally. BACK: Nontender without obvious deformity. No CVA tenderness. Data Data Last Documented VS Vital Signs Date Time Temp Pulse Resp B/P (MAP) Pulse Ox O2 Delivery O2 Flow Rate FiO2 01/16/17 19:37 01/16/17 18:53 98.4 80 14 98 MDM Medical Screen Exam Complete: Yes Emergency Medical Condition: No Differential Diagnosis L wrist contusion Narrative Course 41-year-old male presents for [place] for evaluation left wrist pain. Physical exam is reassuring. Patient has no limitations in range of motion. No exacerbation of pain with palpation or range of motion. The extremity is neurovascularly intact. I did not feel imaging is indicated at this time. At this time there are no urgent or emergent needs for medical intervention identified. A medical screening exam was performed: At the time of evaluation the presenting medical condition was determined not to be of an emergent nature. The patient was given the option of receiving additional care, but declined. Patient was given options for additional community resources from which to obtain care. The Patient Has Been advised to seek medical attention for their presenting complaint. The patient has been advised to return to the ER at any time if an emergent condition develops. Primary Impression: Encounter for medical screening examination Condition: Stable Meli Mcdaniel Jan 16, 2017 19:34
== END 2017-01-16 19:48 | disposition left against medical advice (07) ==
LOC: NEPK 18:50
DX: M25.532 Pain in left wrist (principal)
CPT/HCPCS: 99281

== ENCOUNTER 2017-01-16 23:17 | Emergency (ER) | payer MEDICARE, OTHER ==
[~2017-01-16] VITALS: Ht 180.3 cm; Wt 78.0 kg
[2017-01-16 23:19] VITALS: BP 107/78; PULSE 98; RESP 15; TEMP 98.4; O2SAT 100
--- NOTE | 2017-01-16 23:26 | PD ---
HPI Chief Complaint: Psychiatric Symptoms Time Seen by Provider: 23:26 Travel History International Travel<30 days: No Contact w/Intl Traveler<30days: No Traveled to known affect area: No History of Present Illness HPI 41-year-old male presents to the emergency department for the second time today for evaluation. Patient states he is having suicidal thoughts. Patient has been seen several times in our emergency department, evaluated by psychiatry, and provided resources for outpatient. He has no plans for suicide. These are fleeting thoughts. Denies any other symptoms at this time. History Past Medical Histgory Hx Chemotherapy: No Social History Alcohol Use: No Tobacco Use: Yes (04/25 PPD) Allergies-Medications (Allergen,Severity, Reaction): Coded Allergies: grass pollen (Verified Allergy, Mild, SNEEZING, ITCHING, 01/16/17) Uncoded Allergies: Seasonal Allergies (Allergy, Unknown, 02/13/13) Per pt. Reported Meds & Prescriptions Reported Meds & Active Scripts Active Seroquel (Quetiapine Fumarate) 50 Mg Tab 50 Mg PO HS Reported Hydrochlorothiazide 12.5 Mg Tab 12.5 Mg PO DAILY Acyclovir 400 Mg Tab 400 Mg PO QID Benztropine (Benztropine Mesylate) 0.5 Mg Tab 2 Mg PO HS Nexium (Esomeprazole DR) 20 Mg Capdr 20 Mg PO DAILY Buspirone (Buspirone HCl) 15 Mg Tab 15 Mg PO TID Banophen (Diphenhydramine HCl) 25 Mg Cap 25 Mg PO HS Review of Systems Except as stated in HPI: all other systems reviewed are Neg Physical Exam Narrative GENERAL: Well-nourished, well-developed male patient in no acute distress SKIN: Focused skin assessment warm/dry. HEAD: Normocephalic. EYES: No scleral icterus. No injection or drainage. NECK: Supple, trachea midline. No JVD or lymphadenopathy. CARDIOVASCULAR: Regular rate and rhythm without murmurs, gallops, or rubs. RESPIRATORY: Breath sounds equal bilaterally. No accessory muscle use. GASTROINTESTINAL: Abdomen soft, non-tender, nondistended. MUSCULOSKELETAL: No cyanosis, or edema. BACK: Nontender without obvious deformity. No CVA tenderness. Data Data Last Documented VS Vital Signs Date Time Temp Pulse Resp B/P (MAP) Pulse Ox O2 Delivery O2 Flow Rate FiO2 9/25/17 23:19 98.4 98 15 107/78 (88) 100 Room Air [facility] Medical Screen Exam Complete: Yes Emergency Medical Condition: No Differential Diagnosis Malingering, chronic paranoid schizophrenia Narrative Course 41-year-old male presents to emergency department for evaluation. Patient appears without distress. Vital signs are stable. Patient was already seen and evaluated by psychiatry once today on his previous visit prior to his discharge this morning. He is malingering. He is requesting uriel paul. At this time there are no urgent or emergent needs for medical intervention identified. A medical screening exam was performed: At the time of evaluation the presenting medical condition was determined not to be of an emergent nature. The patient was given the option of receiving additional care, but declined. Patient was given options for additional community resources from which to obtain care. The Patient Has Been advised to seek medical attention for their presenting complaint. The patient has been advised to return to the ER at any time if an emergent condition develops. Primary Impression: Encounter for medical screening examination Condition: Stable Meli Mcdaniel Jan 16, 2017 23:26
== END 2017-01-16 23:39 | disposition left against medical advice (07) ==
LOC: NEPK 23:17
DX: R45.851 Suicidal ideations (principal)
CPT/HCPCS: 99281

== ENCOUNTER 2017-01-18 00:11 | Emergency (ER) | payer MEDICARE, OTHER ==
[~2017-01-18] VITALS: Ht 180.3 cm; Wt 74.0 kg
[2017-01-18 00:13] VITALS: BP 144/82; PULSE 82; RESP 16; TEMP 97.9; O2SAT 98
--- NOTE | 2017-01-18 02:22 | PD ---
HPI Chief Complaint: Pain: Acute or Chronic Time Seen by Provider: 02:19 Travel History International Travel<30 days: No Contact w/Intl Traveler<30days: No Traveled to known affect area: No History of Present Illness HPI 41-year-old male with history schizophrenia, presents to emergency department again abrasion. Patient states that he has been walking all day and he has right toe pain. Believes he has a blister but states "I am not a nurse so I do not know." At this time he denies suicidal or homicidal ideations. Continues to be homeless. Has no other symptoms to report. History Past Medical Histgory Hx Chemotherapy: No Social History Alcohol Use: No Tobacco Use: Yes (04/25 PPD) Allergies-Medications (Allergen,Severity, Reaction): Coded Allergies: grass pollen (Verified Allergy, Mild, SNEEZING, ITCHING, 01/18/17) Uncoded Allergies: Seasonal Allergies (Allergy, Unknown, 02/13/13) Per pt. Reported Meds & Prescriptions Reported Meds & Active Scripts Active Seroquel (Quetiapine Fumarate) 50 Mg Tab 50 Mg PO HS Reported Hydrochlorothiazide 12.5 Mg Tab 12.5 Mg PO DAILY Acyclovir 400 Mg Tab 400 Mg PO QID Benztropine (Benztropine Mesylate) 0.5 Mg Tab 2 Mg PO HS Nexium (Esomeprazole DR) 20 Mg Capdr 20 Mg PO DAILY Buspirone (Buspirone HCl) 15 Mg Tab 15 Mg PO TID Banophen (Diphenhydramine HCl) 25 Mg Cap 25 Mg PO HS Review of Systems Except as stated in HPI: all other systems reviewed are Neg Physical Exam Narrative GENERAL: Well-nourished, well-developed male patient, ambulatory with a nonantalgic gait no acute distress SKIN: Focused skin assessment warm/dry. 1 cm in diameter blister on the volar surface of the right great toe. No erythema or edema. HEAD: Normocephalic. EYES: No scleral icterus. No injection or drainage. NECK: Supple, trachea midline. No JVD or lymphadenopathy. CARDIOVASCULAR: Regular rate and rhythm without murmurs, gallops, or rubs. RESPIRATORY: Breath sounds equal bilaterally. No accessory muscle use. GASTROINTESTINAL: Abdomen soft, non-tender, nondistended. MUSCULOSKELETAL: No cyanosis, or edema. BACK: Nontender without obvious deformity. No CVA tenderness. Data Data Last Documented VS Vital Signs Date Time Temp Pulse Resp B/P (MAP) Pulse Ox O2 Delivery O2 Flow Rate FiO2 01/18/17 00:13 97.9 82 16 144/82 (102) 98 MDM Medical Screen Exam Complete: Yes Emergency Medical Condition: No Differential Diagnosis Right great toe blister Narrative Course 41-year-old male presents to emergency department for evaluation of a blister on his right great toe after walking long distances today. Physical exam is consistent with blister. I counseled the patient on care. At this time there are no urgent or emergent needs for medical intervention identified. A medical screening exam was performed: At the time of evaluation the presenting medical condition was determined not to be of an emergent nature. The patient was given the option of receiving additional care, but declined. Patient was given options for additional community resources from which to obtain care. The Patient Has Been advised to seek medical attention for their presenting complaint. The patient has been advised to return to the ER at any time if an emergent condition develops. Primary Impression: Encounter for medical screening examination Condition: Stable Meli Mcdaniel Jan 18, 2017 02:22
== END 2017-01-18 10:21 | disposition left against medical advice (07) ==
LOC: NEPD 00:11
DX: Z00.00 Encounter for general adult medical examination without abnormal findings (principal); M79.671 Pain in right foot; Z76.5 Malingerer [conscious simulation]
CPT/HCPCS: 99281

== ENCOUNTER 2017-01-19 21:40 | Emergency (ER) | payer MEDICARE, OTHER ==
[~2017-01-19] VITALS: Ht 180.3 cm; Wt 75.0 kg
[2017-01-19 21:42] VITALS: BP 163/90; PULSE 75; RESP 15; TEMP 98.2; O2SAT 98
== END 2017-01-19 23:18 | disposition left against medical advice (07) ==
LOC: NED 21:40
DX: M79.673 Pain in unspecified foot (principal); Z53.21 Procedure and treatment not carried out due to patient leaving prior to being seen by health care provider
CPT/HCPCS: 99281

== ENCOUNTER 2017-01-20 14:24 | Emergency (ER) | payer MEDICARE, OTHER ==
--- NOTE | 2017-01-20 16:16 | PD ---
HPI Chief Complaint: Psychiatric Symptoms Time Seen by Provider: 15:39 Travel History International Travel<30 days: No Contact w/Intl Traveler<30days: No History of Present Illness HPI Patient comes in under [place] act by police for reported suicidal ideations. Patient denies any suicidal or homicidal ideations. Patient states he came in because he is "exhausted and need a place to sleep." Patient denies any medical concerns at this time. Denies any chest pain, shortness breath, fevers , nausea, vomiting, abdominal pain, or headaches. Patient denies anything making it better or worse. PFSH Past Medical History Hx Anticoagulant Therapy: No Arthritis: No Asthma: No Autoimmune Disease: No Anxiety: Yes (WITH PANIC ATTACKS) Depression: Yes Heart Rhythm Problems: No Cardiovascular Problems: Yes (htn) High Cholesterol: Yes Chemotherapy: No Chest Pain: No Congestive Heart Failure: No COPD: No Cerebrovascular Accident: No Diabetes: No Diminished Hearing: No Endocrine: No Gastrointestinal Disorders: Yes (HX OF HEMMORHOIDECTOMY) GERD: Yes Glaucoma: No Genitourinary: Yes (GENITAL HERPES) Hepatitis: No Hiatal Hernia: No Hypertension: Yes Immune Disorder: No Implanted Vascular Access Dvce: No Kidney Stones: No Musculoskeletal: No Neurologic: Yes (HX OF BELLS PALSY) Psychiatric: Yes Reproductive: No Respiratory: No Immunizations Current: No Myocardial Infarction: No Renal Failure: No Schizophrenia: Yes (PARANOID) Sleep Apnea: No Thyroid Disease: No Ulcer: No Past Surgical History Abdominal Surgery: No AICD: No Cardiac Surgery: No Ear Surgery: No Endocrine Surgery: No Eye Surgery: No Genitourinary Surgery: No Gynecologic Surgery: No Hysterectomy: No Insulin Pump: No Neurologic Surgery: No Oral Surgery: No Pacemaker: No Thoracic Surgery: No Social History Alcohol Use: No Tobacco Use: Yes (1/2 PPD) Substance Use: No (HX OF) Allergies-Medications (Allergen,Severity, Reaction): Coded Allergies: grass pollen (Verified Allergy, Mild, SNEEZING, ITCHING, 01/18/17) Uncoded Allergies: Seasonal Allergies (Allergy, Unknown, 02/13/13) Per pt. Reported Meds & Prescriptions Reported Meds & Active Scripts Active Seroquel (Quetiapine Fumarate) 50 Mg Tab 50 Mg PO HS Reported Acyclovir 400 Mg Tab 400 Mg PO QID Benztropine (Benztropine Mesylate) 0.5 Mg Tab 2 Mg PO HS Buspirone (Buspirone HCl) 15 Mg Tab 15 Mg PO TID Review of Systems Except as stated in HPI: all other systems reviewed are Neg Physical Exam Narrative GENERAL: Well-developed, well nourished, in no acute distress, and non-ill appearing. SKIN: Focused skin assessment warm and dry. HEAD: Atraumatic. Normocephalic. EYES: Pupils equal and round. EOMI. No scleral icterus. No injection or drainage. ENT: No nasal bleeding or discharge. Mucous membranes pink and moist. NECK: Trachea midline. Supple. No nuclear rigidity. CARDIOVASCULAR: Regular rate and rhythm. No murmur appreciated. RESPIRATORY: No accessory muscle use. No respiratory distress. Clear to auscultation. Breath sounds equal bilaterally. MUSCULOSKELETAL: No obvious deformities. No clubbing. No cyanosis. No edema. Full range of motion. NEUROLOGICAL: Awake and alert. No obvious cranial nerve deficits. Motor grossly within normal limits. Normal speech. PSYCHIATRIC: Appropriate mood and affect; insight and judgment normal. Data Data Orders Orders Psych Screen (01/20/17 15:12) Diet Regular Basic (01/20/17 Dinner) Complete Blood Count With Diff (01/20/17 15:34) Comprehensive Metabolic Panel (01/20/17 15:34) Drug Screen, Random Urine (01/20/17 15:34) Alcohol (Ethanol) (01/20/17 15:34) Labs Laboratory Tests Test 01/20/17 16:05 01/20/17 16:15 Urine Opiates Screen NEG Urine Barbiturates Screen NEG Urine Amphetamines Screen NEG Urine Benzodiazepines Screen NEG Urine Cocaine Screen NEG Urine Cannabinoids Screen NEG White Blood Count 4.4 TH/MM3 Red Blood Count 4.18 MIL/MM3 Hemoglobin 13.9 GM/DL Hematocrit 40.5 % Mean Corpuscular Volume 97.1 FL Mean Corpuscular Hemoglobin 33.3 PG Mean Corpuscular Hemoglobin Concent 34.3 % Red Cell Distribution Width 12.7 % Platelet Count 245 TH/MM3 Mean Platelet Volume 7.7 FL Neutrophils (%) (Auto) 55.3 % Lymphocytes (%) (Auto) 34.0 % Monocytes (%) (Auto) 8.5 % Eosinophils (%) (Auto) 1.7 % Basophils (%) (Auto) 0.5 % Neutrophils # (Auto) 2.4 TH/MM3 Lymphocytes # (Auto) 1.5 TH/MM3 Monocytes # (Auto) 0.4 TH/MM3 Eosinophils # (Auto) 0.1 TH/MM3 Basophils # (Auto) 0.0 TH/MM3 CBC Comment DIFF FINAL Differential Comment Blood Urea Nitrogen 23 MG/DL Creatinine 1.23 MG/DL Random Glucose 110 MG/DL Total Protein 6.7 GM/DL Albumin 3.6 GM/DL Calcium Level 8.5 MG/DL Alkaline Phosphatase 57 U/L Aspartate Amino Transf (AST/SGOT) 31 U/L Alanine Aminotransferase (ALT/SGPT) 39 U/L Total Bilirubin 1.0 MG/DL Sodium Level 141 MEQ/L Potassium Level 3.9 MEQ/L Chloride Level 107 MEQ/L Carbon Dioxide Level 27.8 MEQ/L Anion Gap 6 MEQ/L Estimat Glomerular Filtration Rate 79 ML/MIN Ethyl Alcohol Level LESS THAN 3 MG/DL MDM Medical Decision Making Medical Screen Exam Complete: Yes Emergency Medical Condition: No Differential Diagnosis Homicidal, suicidal, malingering, schizophrenia, alcohol intoxication, substance abuse, other Narrative Course Patient was seen and examined. Labs were obtained and reviewed. Patient medically cleared for further treatment and evaluation by psych. Final disposition per psych. Diagnosis Primary Impression: Malingering Additional Impression: Medical clearance for psychiatric admission Condition: Stable Shadi Lopez Jan 20, 2017 16:16
[2017-01-20 16:54] LABS: AUTOMATED NEUTROPHIL # 2.4 TH/MM3 (1.8-7.7); BASOPHIL % 0.5 % (0.0-2.0); EOSINOPHIL # 0.1 TH/MM3 (0-0.4); EOSINOPHIL % 1.7 % (0.0-4.0); HEMATOCRIT 40.5 % (39.0-51.0); HEMO FLAGS DIFF FINAL; LYMPHOCYTE # 1.5 TH/MM3 (1.0-4.8); MEAN CELL VOLUME 97.1 FL (80.0-100.0); MEAN CORPUSCULAR HEMOGLOBIN 33.3 PG (27.0-34.0); MEAN CORPUSCULAR HGB CONC 34.3 % (32.0-36.0); MONO % 8.5 % (0.0-8.0); NEUT % 55.3 % (16.0-70.0); PLATELET COUNT 245 TH/MM3 (150-450); RED BLOOD COUNT 4.18 MIL/MM3 (4.50-5.90); RED CELL DISTRIBUTION WIDTH 12.7 % (11.6-17.2); WHITE BLOOD COUNT 4.4 TH/MM3 (4.0-11.0)
[2017-01-20 17:16] LABS: ANION GAP 6 MEQ/L (5-15); AST (GOT) 31 U/L (15-37); BICARBONATE 27.8 MEQ/L (21.0-32.0); BLOOD UREA NITROGEN 23 MG/DL (7-18); CHLORIDE 107 MEQ/L (98-107); GLOMERULAR FILTRATION RATE 79 ML/MIN (>89); POTASSIUM 3.9 MEQ/L (3.5-5.1); SODIUM (NA) 141 MEQ/L (136-145)
[2017-01-20 17:17] LABS: ALT (GPT) 39 U/L (12-78)
[2017-01-20 17:19] LABS: ALKALINE PHOSPHATASE 57 U/L (45-117)
[2017-01-20 17:29] LABS: ALCOHOL LESS THAN 3 MG/DL (0-5)
[2017-01-20 17:30] VITALS: BP 92/54; PULSE 59; RESP 18; TEMP 97.6; O2SAT 97
[2017-01-20] MEDS ORDERED: QUEtiapine FUMARATE 25 MG TAB PO ONE (21:30)
[2017-01-20 21:49] VITALS: RESP 18
[2017-01-21 02:00] VITALS: RESP 18
[2017-01-21 06:32] VITALS: BP 120/62; PULSE 60; RESP 18; RESP 20
--- NOTE | 2017-01-21 11:35 | PD ---
Physical Exam Date Seen by Provider: Jan 21, 2017 Time Seen by Provider: 11:35 Narrative 41-year-old male is brought under Cotton act to the emergency department. Patient was seen by the psychiatric nurse practitioner and the Cotton act was lifted. The patient is ambulatory, answering questions appropriately, denies any suicidal or homicidal ideation to me. This is the patient's 18th visit this month in December. Behavior is suspicious of malingering. Data Data Last Documented VS Vital Signs Date Time Temp Pulse Resp B/P (MAP) Pulse Ox O2 Delivery O2 Flow Rate FiO2 01/21/17 06:32 60 20 120/62 (81) 01/20/17 17:30 97.6 97 Room Air Orders Orders Psych Screen (01/20/17 15:12) Diet Regular Basic (01/20/17 Dinner) Complete Blood Count With Diff (01/20/17 15:34) Comprehensive Metabolic Panel (01/20/17 15:34) Drug Screen, Random Urine (01/20/17 15:34) Alcohol (Ethanol) (01/20/17 15:34) Quetiapine (Seroquel) (01/20/17 21:30) Diet Regular Basic (01/21/17 Breakfast) Labs Laboratory Tests Test 01/20/17 16:05 01/20/17 16:15 Urine Opiates Screen NEG Urine Barbiturates Screen NEG Urine Amphetamines Screen NEG Urine Benzodiazepines Screen NEG Urine Cocaine Screen NEG Urine Cannabinoids Screen NEG White Blood Count 4.4 TH/MM3 Red Blood Count 4.18 MIL/MM3 Hemoglobin 13.9 GM/DL Hematocrit 40.5 % Mean Corpuscular Volume 97.1 FL Mean Corpuscular Hemoglobin 33.3 PG Mean Corpuscular Hemoglobin Concent 34.3 % Red Cell Distribution Width 12.7 % Platelet Count 245 TH/MM3 Mean Platelet Volume 7.7 FL Neutrophils (%) (Auto) 55.3 % Lymphocytes (%) (Auto) 34.0 % Monocytes (%) (Auto) 8.5 % Eosinophils (%) (Auto) 1.7 % Basophils (%) (Auto) 0.5 % Neutrophils # (Auto) 2.4 TH/MM3 Lymphocytes # (Auto) 1.5 TH/MM3 Monocytes # (Auto) 0.4 TH/MM3 Eosinophils # (Auto) 0.1 TH/MM3 Basophils # (Auto) 0.0 TH/MM3 CBC Comment DIFF FINAL Differential Comment Blood Urea Nitrogen 23 MG/DL Creatinine 1.23 MG/DL Random Glucose 110 MG/DL Total Protein 6.7 GM/DL Albumin 3.6 GM/DL Calcium Level 8.5 MG/DL Alkaline Phosphatase 57 U/L Aspartate Amino Transf (AST/SGOT) 31 U/L Alanine Aminotransferase (ALT/SGPT) 39 U/L Total Bilirubin 1.0 MG/DL Sodium Level 141 MEQ/L Potassium Level 3.9 MEQ/L Chloride Level 107 MEQ/L Carbon Dioxide Level 27.8 MEQ/L Anion Gap 6 MEQ/L Estimat Glomerular Filtration Rate 79 ML/MIN Ethyl Alcohol Level LESS THAN 3 MG/DL MDM Supervised Visit with CATARINA: No Diagnosis Primary Impression: Malingering Additional Impression: Medical clearance for psychiatric admission Referrals: [facility] (Out patient) call for appointment Patient Instructions: Depression (ED), General Instructions Additional Instruction: Follow-up with kevin/Guru Koch. Return to the emergency department for any thoughts of hurting herself or anybody else. Med/Other Pt SpecificInfo: No Change to Meds Disposition: 01 DISCHARGE HOME Condition: Stable JackSabino sharmaColette ARNP Jan 21, 2017 11:35
--- NOTE | 2017-01-21 11:39 | PD ---
History of Present Illness Chief Complaint: Psychiatric Symptoms Time Seen by Provider: 11:30 Travel History International Travel<30 Days: No Contact w/Intl Traveler<30days: No Known affected area: No Legal Status Legal Status: Cotton Act Cotton Act Signed By: Ana Florentino History of Present Illness: History of Present Illness HPI Patient is a 41 year old male with history of schizophrenia who presents to ED under Cotton act initiated by police for reported suicidal ideations. The Cotton act alleges that he told several people that he wanted to kill himself. He did not attempt to harm himself. Upon arrival to Ed he denied any suicidal or homicidal ideations and admitted to provider that he came in because he is "exhausted and need a place to sleep." Patient has been to Ed fourteen separate times this month. He was monitored in ED and he presented with no behavioral concerns and no suicidality. He slept well and accepted all meals offered to him. Current toxicology is negative. He is alert, oriented male in hospital [facility] who appears to be maintaining basic hygiene. Engaging and cooperative. Speech is clear and logical. This morning he has a list of appointment that he tells me he has scheduled for Monday including trying to get his insurance card as well as trying to get his EBT. He is not psychotic, not manic and not suicidal or homicidal. PFSH Past Medical History Hx Anticoagulant Therapy: No Arthritis: No Asthma: No Autoimmune Disease: No Anxiety: Yes Depression: Yes Heart Rhythm Problems: No Cardiovascular Problems: Yes (htn) High Cholesterol: Yes Chemotherapy: No Chest Pain: No Congestive Heart Failure: No COPD: No Cerebrovascular Accident: No Diabetes: No Diminished Hearing: No Endocrine: No Gastrointestinal Disorders: Yes GERD: Yes Glaucoma: No Genitourinary: Yes (genital herpes) Hepatitis: No Hiatal Hernia: No Hypertension: Yes Immune Disorder: No Implanted Vascular Access Dvce: No Kidney Stones: No Musculoskeletal: No Neurologic: Yes (bells palsy) Psychiatric: Yes Reproductive: No Respiratory: No Immunizations Current: No Myocardial Infarction: No Renal Failure: No Schizophrenia: Yes Sleep Apnea: No Thyroid Disease: No Ulcer: No Past Surgical History Abdominal Surgery: No AICD: No Cardiac Surgery: No Ear Surgery: No Endocrine Surgery: No Eye Surgery: No Genitourinary Surgery: No Gynecologic Surgery: No Hysterectomy: No Insulin Pump: No Neurologic Surgery: No Oral Surgery: No Pacemaker: No Thoracic Surgery: No Psychiatric History Psychiatric History Hx Psychiatric Treatment: schizophrenia, substance abuse dependence, anxiety, depression Receives care at [facility] History of Inpatient Treatment: Yes Guns or firearms in home: No Social History Single , homeless male. On disability Hx Alcohol Use: No Hx Tobacco Use: Yes (1/2 PPD) Hx Substance Use: No Substance Use Type: Alcohol Other Substances Used: Pt. 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 Hx of Substance Use Treatment: Yes Family Psychiatric History None reported Allergies-Medications (Allergen,Severity, Reaction): Coded Allergies: grass pollen (Verified Allergy, Mild, SNEEZING, ITCHING, 01/18/17) Uncoded Allergies: Seasonal Allergies (Allergy, Unknown, 02/13/13) Per pt. Reported Meds & Prescriptions Reported Meds & Active Scripts Active Seroquel (Quetiapine Fumarate) 50 Mg Tab 50 Mg PO HS Reported Acyclovir 400 Mg Tab 400 Mg PO QID Benztropine (Benztropine Mesylate) 0.5 Mg Tab 2 Mg PO HS Buspirone (Buspirone HCl) 15 Mg Tab 15 Mg PO TID Review of Systems Except as stated in HPI: all other systems reviewed are Neg Exam Alert: Yes [place]: Person (ox4) Mood: Calm Affect: Appropriate Speech: Clear, Logical Eye Contact: Normal Memory Intact: Comment (No impairment) Hallucinations: Other (Negative) Delusions: No Suicidal: Ideation (Deneis any) Homicidal: Ideation (Deneis any) Insight/Judgement Fair. Poor MDM Medical Decision Making Medical Record Reviewed: Yes Assessment/Plan Patient comes in under Cotton act by police for reported suicidal ideations. Patient denies any suicidal or homicidal ideations. Patient states he came in because he is "exhausted and need a place to sleep." Patient has presented with no behavioral instability, no psychosis and no suicidal or homicidal ideation. He does not meet Cotton act criteria and is here for fdc. Lift BA. [place] psychiatrically for discharge. I have referred him to [facility] for continued outpatient care. Orders Orders Psych Screen (01/20/17 15:12) Diet Regular Basic (01/20/17 Dinner) Complete Blood Count With Diff (01/20/17 15:34) Comprehensive Metabolic Panel (01/20/17 15:34) Drug Screen, Random Urine (01/20/17 15:34) Alcohol (Ethanol) (01/20/17 15:34) Quetiapine (Seroquel) (01/20/17 21:30) Diet Regular Basic (01/21/17 Breakfast) Results Vital Signs Date Time Temp Pulse Resp B/P (MAP) Pulse Ox O2 Delivery O2 Flow Rate FiO2 01/21/17 06:32 60 20 120/62 (81) 01/21/17 02:00 18 01/20/17 21:49 18 01/20/17 17:30 97.6 59 18 92/54 (67) 97 Room Air Laboratory Tests Test 01/20/17 16:05 01/20/17 16:15 Urine Opiates Screen NEG Urine Barbiturates Screen NEG Urine Amphetamines Screen NEG Urine Benzodiazepines Screen NEG Urine Cocaine Screen NEG Urine Cannabinoids Screen NEG White Blood Count 4.4 Red Blood Count 4.18 Hemoglobin 13.9 Hematocrit 40.5 Mean Corpuscular Volume 97.1 Mean Corpuscular Hemoglobin 33.3 Mean Corpuscular Hemoglobin Concent 34.3 Red Cell Distribution Width 12.7 Platelet Count 245 Mean Platelet Volume 7.7 Neutrophils (%) (Auto) 55.3 Lymphocytes (%) (Auto) 34.0 Monocytes (%) (Auto) 8.5 Eosinophils (%) (Auto) 1.7 Basophils (%) (Auto) 0.5 Neutrophils # (Auto) 2.4 Lymphocytes # (Auto) 1.5 Monocytes # (Auto) 0.4 Eosinophils # (Auto) 0.1 Basophils # (Auto) 0.0 CBC Comment DIFF FINAL Differential Comment Blood Urea Nitrogen 23 Creatinine 1.23 Random Glucose 110 Total Protein 6.7 Albumin 3.6 Calcium Level 8.5 Alkaline Phosphatase 57 Aspartate Amino Transf (AST/SGOT) 31 Alanine Aminotransferase (ALT/SGPT) 39 Total Bilirubin 1.0 Sodium Level 141 Potassium Level 3.9 Chloride Level 107 Carbon Dioxide Level 27.8 Anion Gap 6 Estimat Glomerular Filtration Rate 79 Ethyl Alcohol Level LESS THAN 3 Diagnosis Primary Impression: Malingering Psychiatrically Cleared: Yes Med/ Other Pt Specific Info: No Meds Exist/No RX given Disposition: 01 DISCHARGE HOME Condition: Stable Nataliia Hook Jan 21, 2017 11:39
== END 2017-01-21 12:37 | disposition home or self-care (01) ==
LOC: NEPJ 14:24
DX: Z76.5 Malingerer [conscious simulation] (principal); F20.9 Schizophrenia, unspecified
CPT/HCPCS: 80053; 80307; 85025; 99284

== ENCOUNTER 2017-01-22 01:41 | Emergency (ER) | payer MEDICARE, OTHER ==
[~2017-01-22] VITALS: Ht 180.3 cm; Wt 75.0 kg
[~2017-01-22 01:41] MED LIST changes: -BANO25CA PO; -HYDR12.56 PO; -NEXI20CA PO
[2017-01-22 01:44] VITALS: BP 119/83; PULSE 67; RESP 16; TEMP 97.7; O2SAT 99
--- NOTE | 2017-01-22 03:00 | PD ---
HPI Chief Complaint: Psychiatric Symptoms Time Seen by Provider: 02:52 Travel History International Travel<30 days: No Contact w/Intl Traveler<30days: No Traveled to known affect area: No History of Present Illness HPI 41-year-old black male presents to emergency department on a voluntary basis for psychological evaluation. He states that he is not compliant with his medications. He is needs a place to stay. He needs to get some rest. He also like something to drink and eat. The patient claims that he needs to speak the psychiatrist but will not elaborate. No suicidal homicidal ideation. History of schizophrenia and noncompliance along with substance abuse PFS Past Medical History Hx Anticoagulant Therapy: No Arthritis: No Asthma: No Autoimmune Disease: No Anxiety: Yes Depression: Yes Heart Rhythm Problems: No Cardiovascular Problems: Yes (htn) High Cholesterol: Yes Chemotherapy: No Chest Pain: No Congestive Heart Failure: No COPD: No Cerebrovascular Accident: No Diabetes: No Diminished Hearing: No Endocrine: No Gastrointestinal Disorders: Yes GERD: Yes Glaucoma: No Genitourinary: Yes (genital herpes) Hepatitis: No Hiatal Hernia: No Hypertension: Yes Immune Disorder: No Implanted Vascular Access Dvce: No Kidney Stones: No Musculoskeletal: No Neurologic: Yes (bells palsy) Psychiatric: Yes Reproductive: No Respiratory: No Immunizations Current: No Myocardial Infarction: No Renal Failure: No Schizophrenia: Yes Sleep Apnea: No Thyroid Disease: No Ulcer: No Past Surgical History Abdominal Surgery: No AICD: No Cardiac Surgery: No Ear Surgery: No Endocrine Surgery: No Eye Surgery: No Genitourinary Surgery: No Gynecologic Surgery: No Hysterectomy: No Insulin Pump: No Neurologic Surgery: No Oral Surgery: No Pacemaker: No Thoracic Surgery: No Social History Alcohol Use: No Tobacco Use: Yes (1/2 PPD) Substance Use: No Allergies-Medications (Allergen,Severity, Reaction): Coded Allergies: grass pollen (Verified Allergy, Mild, SNEEZING, ITCHING, 01/22/17) Uncoded Allergies: Seasonal Allergies (Allergy, Unknown, 02/13/13) Per pt. Reported Meds & Prescriptions Reported Meds & Active Scripts Active Seroquel (Quetiapine Fumarate) 50 Mg Tab 50 Mg PO HS Reported Buspirone (Buspirone HCl) 15 Mg Tab 15 Mg PO TID Review of Systems Except as stated in HPI: all other systems reviewed are Neg Physical Exam Narrative GENERAL: Well-nourished, well-developed patient. SKIN: Warm and dry. HEAD: Normocephalic and atraumatic. EYES: No scleral icterus. No injection or drainage. ENT: No nasal drainage noted. Mucous membranes pink. Airway patent. NECK: Supple, trachea midline. Moves head freely without obvious discomfort. CARDIOVASCULAR: Regular rate and rhythm without murmurs, gallops, or rubs. RESPIRATORY: Breath sounds equal bilaterally. No accessory muscle use. GASTROINTESTINAL: Abdomen soft, non-tender, nondistended. EXTREMITIES: No cyanosis or edema. BACK: Nontender without obvious deformity. No CVA tenderness. NEURO: Patient is alert and oriented. no sensorimotor deficits. Nonfocal. Normal speech. PSYCH: No delusions. No auditory or visual hallucinations. Data Data Last Documented VS Vital Signs Date Time Temp Pulse Resp B/P (MAP) Pulse Ox O2 Delivery O2 Flow Rate FiO2 01/22/17 01:44 97.7 67 16 119/83 (95) 99 Room Air MDM Medical Decision Making Medical Screen Exam Complete: Yes Emergency Medical Condition: Yes Medical Record Reviewed: Yes Differential Diagnosis MDM: High Differential diagnoses: Schizophrenia, schizoaffective disorder, bipolar, anxiety, depression, adjustment reaction, mood disorder NOS, ODD, depressive disorder NOS, dementia, dementia with agitation, psychosis NOS, substance induced mood disorder, intermittent explosive disorder, Asperger syndrome, infection,electrolyte abnormality, malingering. Narrative Course The patient is been medically cleared. This is schizophrenia, malingering Diagnosis Primary Impression: Schizophrenia Qualified Codes: F20.9 - Schizophrenia, unspecified Additional Impression: Malingering Patient Instructions: General Instructions Additional Instructions: Rest. Increase fluids. Avoid alcohol. Avoid illegal substances. Follow-up with [facility]. Follow-up with [facility] for detox. Do not operate a car or any heavy machinery under the influence of alcohol or drugs. Follow-up with a medical doctor this week. Return to the ER for emergencies Med/Other Pt SpecificInfo: No Change to Meds Disposition: 01 DISCHARGE HOME Condition: Stable Johny Zamarripa Jan 22, 2017 03:00
== END 2017-01-22 03:12 | disposition home or self-care (01) ==
LOC: NEPD 01:41
DX: F20.9 Schizophrenia, unspecified (principal); Z76.5 Malingerer [conscious simulation]
CPT/HCPCS: 99283

== ENCOUNTER 2017-01-22 19:43 | Emergency (ER) | payer MEDICARE, OTHER ==
[~2017-01-22] VITALS: Ht 180.3 cm; Wt 75.0 kg
[2017-01-22 19:44] VITALS: BP_SYST 124; PULSE 74; RESP 16; TEMP 98.4; O2SAT 98
--- NOTE | 2017-01-22 21:51 | PD ---
HPI Chief Complaint: Medical Clearance Time Seen by Provider: 21:36 Travel History International Travel<30 days: No Contact w/Intl Traveler<30days: No Traveled to known affect area: No History of Present Illness HPI Patient is a 41-year-old male presenting to the emergency department for voluntarily for psychiatric evaluation. Patient states that he became suicidal when he could not obtain food. He is waiting on the government to send him his food stamps. Because he has not received his food stamps he has had to shop lift. Patient states he has a history of schizophrenia and has been off of his medications for several weeks and he cannot function without these medications. He reports a previous attempt at suicide but would not elaborate. He states that if he does not get food it will result in him harming himself. He denies any visual or auditory hallucinations, he denies any physical complaints at this time. PFSH Past Medical History Hx Anticoagulant Therapy: No Arthritis: No Asthma: No Autoimmune Disease: No Anxiety: Yes Depression: Yes Heart Rhythm Problems: No Cardiovascular Problems: Yes (htn) High Cholesterol: Yes Chemotherapy: No Chest Pain: No Congestive Heart Failure: No COPD: No Cerebrovascular Accident: No Diabetes: No Diminished Hearing: No Endocrine: No Gastrointestinal Disorders: Yes GERD: Yes Glaucoma: No Genitourinary: Yes (genital herpes) Hepatitis: No Hiatal Hernia: No Hypertension: Yes Immune Disorder: No Implanted Vascular Access Dvce: No Kidney Stones: No Musculoskeletal: No Neurologic: Yes (bells palsy) Psychiatric: Yes Reproductive: No Respiratory: No Immunizations Current: No Myocardial Infarction: No Renal Failure: No Schizophrenia: Yes Sleep Apnea: No Thyroid Disease: No Ulcer: No Past Surgical History Abdominal Surgery: No AICD: No Cardiac Surgery: No Ear Surgery: No Endocrine Surgery: No Eye Surgery: No Genitourinary Surgery: No Gynecologic Surgery: No Hysterectomy: No Insulin Pump: No Neurologic Surgery: No Oral Surgery: No Pacemaker: No Thoracic Surgery: No Social History Alcohol Use: No Tobacco Use: Yes (1/2 PPD) Substance Use: No Allergies-Medications (Allergen,Severity, Reaction): Coded Allergies: grass pollen (Verified Allergy, Mild, SNEEZING, ITCHING, 01/22/17) Uncoded Allergies: Seasonal Allergies (Allergy, Unknown, 02/13/13) Per pt. Reported Meds & Prescriptions Reported Meds & Active Scripts Active Seroquel (Quetiapine Fumarate) 50 Mg Tab 50 Mg PO HS Reported Buspirone (Buspirone HCl) 15 Mg Tab 15 Mg PO TID Review of Systems Except as stated in HPI: all other systems reviewed are Neg Psychiatric: Positive: Suicidal Ideations, Mood Disorder Physical Exam Narrative GENERAL: Thin, well-developed, alert male. Resting comfortably in no acute distress. SKIN: Warm and dry. HEAD: Atraumatic. Normocephalic. EYES: Pupils equal and round. No scleral icterus. No injection or drainage. ENT: No nasal bleeding or discharge. Mucous membranes pink and moist. NECK: Trachea midline. No JVD. CARDIOVASCULAR: Regular rate and rhythm. RESPIRATORY: No accessory muscle use. Clear to auscultation. Breath sounds equal bilaterally. GASTROINTESTINAL: Abdomen soft, non-tender, nondistended. Hepatic and splenic margins not palpable. MUSCULOSKELETAL: Extremities without clubbing, cyanosis, or edema. No obvious deformities. NEUROLOGICAL: Awake and alert. No obvious cranial nerve deficits. Motor grossly within normal limits. Five out of 5 muscle strength in the arms and legs. Normal speech. PSYCHIATRIC: Appropriate mood and affect; insight and judgment normal. Data Data Last Documented VS Vital Signs Date Time Temp Pulse Resp B/P (MAP) Pulse Ox O2 Delivery O2 Flow Rate FiO2 01/22/17 19:44 98.4 74 16 124/ 98 Room Air Orders Orders Psych Screen (01/22/17 21:43) [facility] Medical Decision Making Medical Screen Exam Complete: Yes Emergency Medical Condition: Yes Medical Record Reviewed: Yes Interpretation(s) Vital Signs Date Time Temp Pulse Resp B/P (MAP) Pulse Ox O2 Delivery O2 Flow Rate FiO2 01/22/17 19:44 98.4 74 16 124/90 98 Room Air Differential Diagnosis Suicidal ideations versus mood disorder versus schizophrenia versus malingering Narrative Course Patient is a 41-year-old male that has been to the emergency department consistently over the last several weeks. He was discharged earlier today after presenting because he was hungry needed somewhere to sleep. Labs drawn 2 days ago, these were reviewed and no acute findings were identified now or then. Patient was seen by the psychiatric nurse practitioner on January 21, he was advised to go to [facility]. Psych screen reordered. Patient is medically cleared for psychiatric evaluation. Patient allegedly reported feeling suicidal in triage when he had no actual medical complaint to check in with. Diagnosis Primary Impression: Encounter for medical screening examination Condition: Stable Oliva Leong Jan 22, 2017 21:51
[2017-01-22 21:55] VITALS: BP 123/90
[2017-01-23 08:01] VITALS: BP 121/82
== END 2017-01-23 08:10 | disposition home or self-care (01) ==
LOC: NEPD 19:43
DX: F20.9 Schizophrenia, unspecified (principal)
CPT/HCPCS: 99283

== ENCOUNTER 2017-01-23 18:40 | Emergency (ER) | payer MEDICARE ==
[~2017-01-23 18:40] MED LIST changes: -ACYC400T PO; -BENZ0.5T PO
[2017-01-23 18:42] VITALS: BP 119/74; PULSE 78; RESP 18; TEMP 98.2; O2SAT 98
--- NOTE | 2017-01-23 18:52 | PD ---
HPI Chief Complaint: Medical Clearance Time Seen by Provider: 18:51 Travel History International Travel<30 days: No Contact w/Intl Traveler<30days: No Traveled to known affect area: No History of Present Illness HPI Pt with history of schizophrenia and multiple visits to the ED, psychiatric screens, evaluation by psychiatry, presents today stating that his Social Security check did not come through today and him and his and waited all day long and now he doesn't have a place to stay. Per his regular complaint, patient states that when he is on the streets, he feels as though he may harm himself. Directly asking the patient, he states that he just needs a place to stay. He has no allergies to report this time. History Past Medical Histgory Medical History: Denies Significant Hx Hx Chemotherapy: No Social History Alcohol Use: No Tobacco Use: Yes (2 PPD) Allergies-Medications (Allergen,Severity, Reaction): Coded Allergies: grass pollen (Verified Allergy, Mild, SNEEZING, ITCHING, 01/23/17) Uncoded Allergies: Seasonal Allergies (Allergy, Unknown, 02/13/13) Per pt. Reported Meds & Prescriptions Reported Meds & Active Scripts Active Seroquel (Quetiapine Fumarate) 50 Mg Tab 50 Mg PO HS Reported Buspirone (Buspirone HCl) 15 Mg Tab 15 Mg PO TID Review of Systems Except as stated in HPI: all other systems reviewed are Neg Physical Exam Narrative GENERAL: Well-nourished, well-developed male patient ambulatory and in no acute distress SKIN: Focused skin assessment warm/dry. HEAD: Normocephalic. EYES: No scleral icterus. No injection or drainage. NECK: Supple, trachea midline. No JVD or lymphadenopathy. CARDIOVASCULAR: Regular rate and rhythm without murmurs, gallops, or rubs. RESPIRATORY: Breath sounds equal bilaterally. No accessory muscle use. GASTROINTESTINAL: Abdomen soft, non-tender, nondistended. MUSCULOSKELETAL: No cyanosis, or edema. BACK: Nontender without obvious deformity. No CVA tenderness. Data Data Last Documented VS Vital Signs Date Time Temp Pulse Resp B/P (MAP) Pulse Ox O2 Delivery O2 Flow Rate FiO2 01/23/17 18:42 98.2 78 18 119/74 (89) 98 Room Air MDM Medical Screen Exam Complete: Yes Emergency Medical Condition: No Differential Diagnosis Malingering Narrative Course 41-year-old male presents to emergency department for a place to stay. Patient has been seen several times here in the emergency department, evaluated by psychiatry, and provided outpatient resources. At this time there are no urgent or emergent needs for medical intervention identified. A medical screening exam was performed: At the time of evaluation the presenting medical condition was determined not to be of an emergent nature. The patient was given the option of receiving additional care, but declined. Patient was given options for additional community resources from which to obtain care. The Patient Has Been advised to seek medical attention for their presenting complaint. The patient has been advised to return to the ER at any time if an emergent condition develops. Primary Impression: Encounter for medical screening examination Condition: Stable Meli Mcdaniel Jan 23, 2017 18:52
== END 2017-01-23 19:01 | disposition left against medical advice (07) ==
LOC: NED 18:40
DX: F20.9 Schizophrenia, unspecified (principal); F17.200 Nicotine dependence, unspecified, uncomplicated; Z79.899 Other long term (current) drug therapy
CPT/HCPCS: 99281

== ENCOUNTER 2017-01-23 23:41 | Emergency (ER) | payer MEDICARE, OTHER ==
[2017-01-23 23:46] VITALS: BP 134/88; PULSE 82; RESP 16; TEMP 98.3; O2SAT 97
--- NOTE | 2017-01-24 01:39 | PD ---
HPI Chief Complaint: Psychiatric Symptoms Time Seen by Provider: 01:35 Travel History International Travel<30 days: No Contact w/Intl Traveler<30days: No Traveled to known affect area: No History of Present Illness HPI 41-year-old black male well-known to the ER staff for multiple ER evaluations. This is a patient who was seen earlier today and was discharged. He once again returns stating that he would like to speak to a psychiatrist and get a refill of his medications. He is requesting to be transferred to D POD so he can lay down and rest. The patient states that if he cannot be transferred over to D POD to rest he would like to leave. He denies any suicidal or homicidal ideation. No recent illness. PFSH Past Medical History Hx Anticoagulant Therapy: No Arthritis: No Asthma: No Autoimmune Disease: No Anxiety: Yes Depression: Yes Heart Rhythm Problems: No Cardiovascular Problems: Yes (htn) High Cholesterol: Yes Chemotherapy: No Chest Pain: No Congestive Heart Failure: No COPD: No Cerebrovascular Accident: No Diabetes: No Diminished Hearing: No Endocrine: No Gastrointestinal Disorders: Yes GERD: Yes Glaucoma: No Genitourinary: Yes (genital herpes) Hepatitis: No Hiatal Hernia: No Hypertension: Yes Immune Disorder: No Implanted Vascular Access Dvce: No Kidney Stones: No Musculoskeletal: No Neurologic: Yes (bells palsy) Psychiatric: Yes Reproductive: No Respiratory: No Immunizations Current: No Myocardial Infarction: No Renal Failure: No Schizophrenia: Yes Sleep Apnea: No Thyroid Disease: No Ulcer: No Tetanus Vaccination: Unknown Past Surgical History Abdominal Surgery: No AICD: No Cardiac Surgery: No Ear Surgery: No Endocrine Surgery: No Eye Surgery: No Genitourinary Surgery: No Gynecologic Surgery: No Hysterectomy: No Insulin Pump: No Neurologic Surgery: No Oral Surgery: No Pacemaker: No Thoracic Surgery: No Social History Alcohol Use: No Tobacco Use: Yes (04/25 PPD) Substance Use: No Allergies-Medications (Allergen,Severity, Reaction): Coded Allergies: grass pollen (Verified Allergy, Mild, SNEEZING, ITCHING, 01/23/17) Uncoded Allergies: Seasonal Allergies (Allergy, Unknown, 02/13/13) Per pt. Reported Meds & Prescriptions Reported Meds & Active Scripts Active Seroquel (Quetiapine Fumarate) 50 Mg Tab 50 Mg PO HS Reported Buspirone (Buspirone HCl) 15 Mg Tab 15 Mg PO TID Review of Systems Except as stated in HPI: all other systems reviewed are Neg Physical Exam Narrative GENERAL: Well-nourished, well-developed patient. SKIN: Warm and dry. HEAD: Normocephalic and atraumatic. EYES: No scleral icterus. No injection or drainage. ENT: No nasal drainage noted. Mucous membranes pink. Airway patent. NECK: Supple, trachea midline. Moves head freely without obvious discomfort. CARDIOVASCULAR: Regular rate and rhythm without murmurs, gallops, or rubs. RESPIRATORY: Breath sounds equal bilaterally. No accessory muscle use. GASTROINTESTINAL: Abdomen soft, non-tender, nondistended. EXTREMITIES: No cyanosis or edema. BACK: Nontender without obvious deformity. No CVA tenderness. NEURO: Patient is alert and oriented. no sensorimotor deficits. Nonfocal. Normal speech. PSYCH: No delusions. No auditory or visual hallucinations. Data Data Last Documented VS Vital Signs Date Time Temp Pulse Resp B/P (MAP) Pulse Ox O2 Delivery O2 Flow Rate FiO2 01/23/17 23:46 98.3 82 16 134/88 (103) 97 MDM Medical Decision Making Medical Screen Exam Complete: Yes Emergency Medical Condition: Yes Medical Record Reviewed: Yes Differential Diagnosis Differential diagnoses: Alcohol intoxication, substance abuse, schizophrenia, electrolyte abnormality, malingering Narrative Course This is a 41-year-old black male well-known to the ER staff and myself. He does not appear to be acutely intoxicated. The patient states that if he cannot lay down in D pod he would like to leave. The patient does not meet Cotton act criteria. He is requesting discharge. The patient is medically stable for discharge. This is malingering Diagnosis Primary Impression: Malingering Patient Instructions: General Instructions Additional Instructions: Rest. Increase fluids. Avoid alcohol. Avoid illegal substances. Follow-up with [facility] for detox. Follow-up with [facility] for medication refill. Do not operate a car or any heavy machinery under the influence of alcohol or drugs. Follow-up with a medical doctor this week. Return to the ER for emergencies Med/Other Pt SpecificInfo: No Meds Exist/No RX given Disposition: DISCHARGE HOME Condition: Stable Jonhy Zamarripa Jan 24, 2017 01:39
== END 2017-01-24 01:44 | disposition home or self-care (01) ==
LOC: NEPB 23:41
DX: Z76.5 Malingerer [conscious simulation] (principal); F20.9 Schizophrenia, unspecified; I10 Essential (primary) hypertension; K21.9 Gastro-esophageal reflux disease without esophagitis; E78.00 Pure hypercholesterolemia, unspecified; F41.9 Anxiety disorder, unspecified; F17.200 Nicotine dependence, unspecified, uncomplicated; Z79.899 Other long term (current) drug therapy
CPT/HCPCS: 99283

== ENCOUNTER 2017-01-31 22:09 | Emergency (ER) | payer MEDICARE, OTHER ==
[2017-01-31 22:15] VITALS: BP 118/85; PULSE 95; RESP 18; TEMP 98.4; O2SAT 97
[2017-01-31] MEDS ORDERED: ACYC400T PO (22:19)
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
[2017-01-31] MEDS ORDERED: IBUP800T23 PO (22:56)
[2017-01-31] MEDS ORDERED: IBUPROFEN 800 MG TAB PO ONE (23:00)
--- NOTE | 2017-01-31 23:56 | RADRPT ---
EXAM DATE/TIME: 01/31/2017 22:39 [facility] COMPARISON: CHEST PA & LAT, February 06, 2016, 0:27. INDICATIONS : Chest pain. MEDICAL HISTORY : [place] Palsy SURGICAL HISTORY : None. ENCOUNTER: Initial ACUITY: 1 day PAIN SCORE: 8/10 LOCATION: Bilateral chest FINDINGS: A single view of the chest demonstrates the lungs to be symmetrically aerated without evidence of mas s, infiltrate or effusion. The cardiomediastinal contours are unremarkable. Osseous structures are intact. CONCLUSION: No acute disease. Elton Landrum MD on January 31, 2017 at 23:54 Board Certified Radiologist. This report was verified electronically.
== END 2017-01-31 23:25 ==
LOC: NEPK 22:09
DX: Z02.89 Encounter for other administrative examinations (principal); S20.212A Contusion of left front wall of thorax, initial encounter; I10 Essential (primary) hypertension; E78.00 Pure hypercholesterolemia, unspecified; F17.200 Nicotine dependence, unspecified, uncomplicated; Y04.2XXA Assault by strike against or bumped into by another person, initial encounter; Z86.59 Personal history of other mental and behavioral disorders; Z86.79 Personal history of other diseases of the circulatory system; Z87.19 Personal history of other diseases of the digestive system; Z87.448 Personal history of other diseases of urinary system; Z86.69 Personal history of other diseases of the nervous system and sense organs
CPT/HCPCS: 71010; 99283

== ENCOUNTER 2017-03-14 01:34 | Emergency (ER) | payer MEDICARE, OTHER ==
[~2017-03-14] VITALS: Ht 180.3 cm; Wt 75.0 kg
[~2017-03-14 01:34] MED LIST changes: +ACYC400T PO; +IBUP1TAB7 PO
[2017-03-14 01:43] VITALS: BP 117/80; PULSE 100; RESP 16; TEMP 97.7; O2SAT 100
[2017-03-14 02:03] VITALS: BP 117/80; PULSE 100; RESP 16; TEMP 97.7; O2SAT 100
[2017-03-14] MEDS ORDERED: ALLTAB PO (02:24)
--- NOTE | 2017-03-14 02:28 | PD ---
HPI Chief Complaint: Cold / Flu Symptoms Time Seen by Provider: 02:11 Travel History International Travel<30 days: No Contact w/Intl Traveler<30days: No Traveled to known affect area: No History of Present Illness HPI 41-year-old black male presents to emergency department with complaints of nasal congestion. He states that he's had a cold for the past week. He states that he had went to lay down and felt as if he could not breathe. He had an anxiety attack. He presents for evaluation. The patient is now feeling better but still has nasal congestion and cannot breathe through his nose. He denies any fever or chills. No ear pain, sore throat, shortness of breath, nausea or vomiting. PFSH Past Medical History Hx Anticoagulant Therapy: No Arthritis: No Asthma: No Autoimmune Disease: No Anxiety: Yes Depression: Yes Heart Rhythm Problems: No Cardiovascular Problems: No High Cholesterol: Yes Chemotherapy: No Chest Pain: No Congestive Heart Failure: No COPD: No Cerebrovascular Accident: No Diabetes: No Diminished Hearing: No Endocrine: No Gastrointestinal Disorders: Yes GERD: Yes Glaucoma: No Genitourinary: Yes (genital herpes) Hepatitis: No Hiatal Hernia: No Hypertension: Yes Immune Disorder: No Implanted Vascular Access Dvce: No Kidney Stones: No Musculoskeletal: No Neurologic: Yes (bells palsy) Psychiatric: Yes Reproductive: No Respiratory: Yes (SEASONAL ALLERGIES) Immunizations Current: No Myocardial Infarction: No Renal Failure: No Schizophrenia: Yes Sleep Apnea: Yes Thyroid Disease: No Ulcer: No Influenza Vaccination: No ?: Not Past Surgical History Abdominal Surgery: No AICD: No Cardiac Surgery: No Ear Surgery: No Endocrine Surgery: No Eye Surgery: No Genitourinary Surgery: No Gynecologic Surgery: No Hysterectomy: No Insulin Pump: No Neurologic Surgery: No Oral Surgery: No Pacemaker: No Thoracic Surgery: No Social History Alcohol Use: No Tobacco Use: Yes Substance Use: No Allergies-Medications (Allergen,Severity, Reaction): Coded Allergies: grass pollen (Verified Allergy, Mild, SNEEZING, ITCHING, 01/31/17) Uncoded Allergies: Seasonal Allergies (Allergy, Unknown, 02/13/13) Per pt. Reported Meds & Prescriptions Reported Meds & Active Scripts Active Allergy D-12 HR (Cetirizine-Pseudoephedrine 12 HR) 5-120 Mg Tab 1 Tab PO BID Ibuprofen 800 Mg Tab 800 Mg PO Q8H PRN Seroquel (Quetiapine Fumarate) 50 Mg Tab 50 Mg PO HS Reported Acyclovir 400 Mg Tab 400 Mg PO TID Buspirone (Buspirone HCl) 15 Mg Tab 15 Mg PO TID Review of Systems Except as stated in HPI: all other systems reviewed are Neg Physical Exam Narrative GENERAL: Well-developed, well-nourished in no acute distress. Nontoxic appearing. HEAD: Normocephalic, atraumatic. EYES: Pupils equal round and reactive. Extraocular motions intact. No scleral icterus. No injection or drainage. ENT: TMs clear without erythema. The external auditory canals clear. Nose: Edema of the turbinates with clear discharge.. Posterior pharynx is pink and moist. No tonsillar edema or exudate. Uvula midline. Airway patent. NECK: Trachea midline.Supple, nontender, moves head freely. No central bony tenderness or spasm. CARDIOVASCULAR: Regular rate and rhythm without murmurs, gallops, or rubs. RESPIRATORY: Clear to auscultation. Breath sounds equal bilaterally. No wheezes , rales, or rhonchi. GASTROINTESTINAL: Abdomen soft, non-tender, nondistended. No hepato-splenomegaly , or palpable masses. No guarding. EXTREMITIES: No clubbing, cyanosis, or edema. No joint tenderness, effusion, or edema noted. BACK: Nontender without deformity or crepitance. No flank tenderness. Data Data Last Documented VS Vital Signs Date Time Temp Pulse Resp B/P (MAP) Pulse Ox O2 Delivery O2 Flow Rate FiO2 03/14/17 02:03 97.7 100 16 117/80 (92) 100 Room Air Orders Orders Loratadine (Claritin) (03/14/17 02:30) Ed Discharge Order (03/14/17 02:20) MDM Medical Decision Making Medical Screen Exam Complete: Yes Emergency Medical Condition: Yes Medical Record Reviewed: Yes Differential Diagnosis MDM: High Differential diagnoses: Pneumonia, bronchitis, URI, asthma, RAD, legionnaire's disease, SARS, ARDS, influenza, bronchiolitis, RSV,PE,CHF Narrative Course This is URI and anxiety. Patient's given Claritin Diagnosis Primary Impression: URI (upper respiratory infection) Qualified Codes: J06.9 - Acute upper respiratory infection, unspecified; B97.89 - Other viral agents as the cause of diseases classified elsewhere Additional Impression: Substance induced mood disorder Patient Instructions: General Instructions Additional Instructions: Rest. Increase fluids. Afrin nasal spray for the next 3-4 days. Jess-D. Follow-up with a medical doctor in one week. Return to the ER for emergencies. Med/Other Pt SpecificInfo: Prescription(s) given Scripts Cetirizine-Pseudoephedrine 12 HR (Allergy D-12 HR) 5-120 Mg Tab 1 TAB PO BID for Allergies, #14 TAB 0 Refills Prov: Ines Hand MD 03/14/17 Disposition: DISCHARGE HOME Condition: Stable Johny Zamarripa Mar 14, 2017 02:28
[2017-03-14] MEDS ORDERED: LORATADINE 10 MG TAB PO ONE (02:30)
[2017-03-22] MEDS ORDERED: BENZ0.5T PO (11:09)
[2017-03-22] MEDS ORDERED: HALO5TAB PO (11:09)
[2017-03-22] MEDS ORDERED: FLUT50SP EACH NARE (11:51)
[2017-03-23] MEDS ORDERED: FLUT50SP EACH NARE (15:43)
== END 2017-03-14 03:27 | disposition home or self-care (01) ==
LOC: NEPD 01:34
DX: J06.9 Acute upper respiratory infection, unspecified (principal); F19.94 Other psychoactive substance use, unspecified with psychoactive substance-induced mood disorder; F41.9 Anxiety disorder, unspecified; E78.00 Pure hypercholesterolemia, unspecified; K21.9 Gastro-esophageal reflux disease without esophagitis; I10 Essential (primary) hypertension; F20.9 Schizophrenia, unspecified; Z72.0 Tobacco use; Z79.899 Other long term (current) drug therapy
CPT/HCPCS: 99283

== ENCOUNTER 2017-03-19 22:21 | Emergency (ER) | payer MEDICARE, OTHER ==
[~2017-03-19] VITALS: Ht 180.3 cm; Wt 75.0 kg
[~2017-03-19 22:21] MED LIST changes: +ALLTAB PO
[2017-03-19 22:36] VITALS: BP 140/89; PULSE 112; RESP 16; TEMP 98.6; O2SAT 99
--- NOTE | 2017-03-20 00:41 | PD ---
HPI Chief Complaint: Dizziness Time Seen by Provider: 00:24 Travel History International Travel<30 days: No Contact w/Intl Traveler<30days: No Traveled to known affect area: No History of Present Illness HPI Patient comes in complaining of shortness of breath and dizziness that began 2 days ago. Patient reports symptoms only occurs at night after he takes his bedtime psych meds. Patient states that he lays down in bed and feels as though pills are stuck in his throat and makes him unable to breathe until he swallows multiple times and he can breathe again. Patient reports feeling dizzy after taking his nighttime meds as well. Patient denies anything making this better or worse. Patient denies doing anything for it. Patient also reports feeling as though his mouth is very dry after taking his nighttime meds. Patient denies any symptoms during the day. Denies any chest pain, fevers, headache, change in vision, dull pain, nausea, vomiting, or loss or change in bowel or bladder. PFSH Past Medical History Hx Anticoagulant Therapy: No Arthritis: No Asthma: No Autoimmune Disease: No Anxiety: Yes Depression: Yes Heart Rhythm Problems: No Cardiovascular Problems: No High Cholesterol: Yes Chemotherapy: No Chest Pain: No Congestive Heart Failure: No COPD: No Cerebrovascular Accident: No Diabetes: No Diminished Hearing: No Endocrine: No Gastrointestinal Disorders: Yes GERD: Yes Glaucoma: No Genitourinary: Yes (genital herpes) Hepatitis: No Hiatal Hernia: No Hypertension: Yes Immune Disorder: No Implanted Vascular Access Dvce: No Kidney Stones: No Musculoskeletal: No Neurologic: Yes (bells palsy) Psychiatric: Yes Reproductive: No Respiratory: Yes (SEASONAL ALLERGIES) Immunizations Current: Yes Myocardial Infarction: No Renal Failure: No Schizophrenia: Yes Sleep Apnea: Yes Thyroid Disease: No Ulcer: No Tetanus Vaccination: < 5 Years Influenza Vaccination: No Past Surgical History Abdominal Surgery: No AICD: No Cardiac Surgery: No Ear Surgery: No Endocrine Surgery: No Eye Surgery: No Genitourinary Surgery: No Gynecologic Surgery: No Hysterectomy: No Insulin Pump: No Neurologic Surgery: No Oral Surgery: No Pacemaker: No Thoracic Surgery: No Social History Alcohol Use: No Tobacco Use: Yes Substance Use: No Allergies-Medications (Allergen,Severity, Reaction): Coded Allergies: grass pollen (Verified Allergy, Mild, SNEEZING, ITCHING, 03/19/17) Uncoded Allergies: Seasonal Allergies (Allergy, Unknown, 02/13/13) Per pt. Reported Meds & Prescriptions Reported Meds & Active Scripts Active Allergy D-12 HR (Cetirizine-Pseudoephedrine 12 HR) 5-120 Mg Tab 1 Tab PO BID Ibuprofen 800 Mg Tab 800 Mg PO Q8H PRN Seroquel (Quetiapine Fumarate) 50 Mg Tab 50 Mg PO HS Reported Acyclovir 400 Mg Tab 400 Mg PO TID Buspirone (Buspirone HCl) 15 Mg Tab 15 Mg PO TID Review of Systems Except as stated in HPI: all other systems reviewed are Neg Physical Exam Narrative GENERAL: Well-developed, well nourished, in no acute distress, and non-ill appearing. SKIN: Focused skin assessment warm and dry. HEAD: Atraumatic. Normocephalic. EYES: Pupils equal and round. EOMI. No scleral icterus. No injection or drainage. ENT: No nasal bleeding or discharge. Mucous membranes pink and moist. NECK: Trachea midline. Supple. No nuclear rigidity. CARDIOVASCULAR: Regular rate and rhythm. No murmur appreciated. RESPIRATORY: No accessory muscle use. No respiratory distress. Clear to auscultation. Breath sounds equal bilaterally. MUSCULOSKELETAL: No obvious deformities. No clubbing. No cyanosis. No edema. Full range of motion. NEUROLOGICAL: Awake and alert. No obvious cranial nerve deficits. Motor grossly within normal limits. Normal speech. PSYCHIATRIC: Appropriate mood and affect; insight and judgment normal. Data Data Last Documented VS Vital Signs Date Time Temp Pulse Resp B/P (MAP) Pulse Ox O2 Delivery O2 Flow Rate FiO2 03/20/17 01:48 18 03/19/17 22:36 98.6 112 99 Orders Orders Basic Metabolic Panel (Bmp) (03/20/17 00:35) Chest, Single Ap (03/20/17 00:35) Ed Discharge Order (03/20/17 01:26) Labs Laboratory Tests Test 03/20/17 00:46 Blood Urea Nitrogen 15 MG/DL Creatinine 1.14 MG/DL Random Glucose 145 MG/DL Calcium Level 9.3 MG/DL Sodium Level 140 MEQ/L Potassium Level 3.9 MEQ/L Chloride Level 104 MEQ/L Carbon Dioxide Level 30.6 MEQ/L Anion Gap 5 MEQ/L Estimat Glomerular Filtration Rate 87 ML/MIN MDM Medical Decision Making Medical Screen Exam Complete: Yes Emergency Medical Condition: Yes Differential Diagnosis Aspiration pneumonia, metabolic disturbance, dehydration, medication side effect Narrative Course Patient in no obvious distress upon re-evaluation. Discussed patient with Dr. Degroot prior to discharge, who is in agreement with plan of care and disposition. All pertinent laboratory/Radiology result(s) discussed with patient/family. Any questions/concerns in reference to patient diagnosis/ condition discussed and clarified prior to patient's discharge. Reinforced sheer importance of close follow up with patient's primary physician or primary care clinic. Instructed patient to return to ED immediately, if symptoms return/ worsen. Patient showed understanding of above instructions. Further instructions and recommendations were detailed in discharge paperwork. Patient ambulated without difficulty out of ED at discharge. Diagnosis Primary Impression: Medication side effect Qualified Codes: T88.7XXA - Unspecified adverse effect of drug or medicament, initial encounter Patient Instructions: General Instructions Additional Instructions: Follow-up with your primary care physician and/or psychiatrist this week. Drink plenty of non-caffeinated and nonalcoholic fluids. Return to the emergency department if symptoms get worse. Disposition: 01 DISCHARGE HOME Condition: Stable Shadi Lopez Mar 20, 2017 00:41
--- NOTE | 2017-03-20 01:17 | RADRPT ---
EXAM DATE/TIME: 03/20/2017 00:45 [facility] COMPARISON: CHEST SINGLE AP, January 31, 2017, 22:39. INDICATIONS : Shortness of breath. MEDICAL HISTORY : [place] palsy SURGICAL HISTORY : None. ENCOUNTER: Initial ACUITY: 1 day PAIN SCORE: 0/10 LOCATION: Bilateral chest FINDINGS: A single view of the chest demonstrates the lungs to be symmetrically aerated without evidence of mas s, infiltrate or effusion. The cardiomediastinal contours are unremarkable. Osseous structures are intact. CONCLUSION: No acute disease. Elton Hall MD on March 20, 2017 at 1:13 Board Certified Radiologist. This report was verified electronically.
[2017-03-20 01:18] LABS: BICARBONATE 30.6 MEQ/L (21.0-32.0); POTASSIUM 3.9 MEQ/L (3.5-5.1)
[2017-03-22] MEDS ORDERED: HALO5TAB PO (11:09)
[2017-03-22] MEDS ORDERED: BENZ0.5T PO (11:09)
[2017-03-22] MEDS ORDERED: FLUT50SP EACH NARE (11:51)
[2017-03-23] MEDS ORDERED: FLUT50SP EACH NARE (15:43)
== END 2017-03-20 01:49 | disposition home or self-care (01) ==
LOC: NEPD 22:21
DX: R42 Dizziness and giddiness (principal); R06.02 Shortness of breath; T43.95XA Adverse effect of unspecified psychotropic drug, initial encounter
CPT/HCPCS: 71010; 80048; 99284

== ENCOUNTER 2017-04-03 21:11 | Emergency (ER) | payer MEDICARE, OTHER ==
[~2017-04-03 21:11] MED LIST changes: -ALLTAB PO; +BENZ0.5T PO; -BUSP15TA PO; +FLUT50SP EACH NARE; +HALO5TAB PO; -IBUP1TAB7 PO
[2017-04-03 21:13] VITALS: BP 130/82; PULSE 107; RESP 16; TEMP 98.7; O2SAT 97
[2017-04-03] MEDS ORDERED: QUET400T PO (23:20)
[2017-04-03] MEDS ORDERED: VENTAER INH (23:48)
--- NOTE | 2017-04-03 23:48 | PD ---
HPI Chief Complaint: Respiratory Symptoms Time Seen by Provider: 23:14 Travel History International Travel<30 days: No Contact w/Intl Traveler<30days: No History of Present Illness HPI PATIENT IS AN ACTIVE SMOKER, SMOKES ABOUT 1 PPD FOR AT LEAST 10 YEARS. PATIENT OVER LAST WEEK HAS STARTED TO FEEL DIFFICULTY BREATHING, CHEST TIGHTNESS THAT GOT BETTER WHEN HE USED ONE OF HIS FRIENDS ALBUTEROL INHALER. OCCASIONAL DRY COUGH OVER SAME TIME FRAME...OCCURS MORE OFTEN AT NIGHT TIME...PATIENT ALSO STATES THAT HE SNORES AT NIGHT AND LATELY HAS BEEN WAKING UP DURING THE NIGHT AND HAS HAD MORE TROUBLE GETTING GOOD SLEEP. PATIENT DENIES ANY ALLEVIATING/ AGGRAVATING FACTORS. CHART AND RN NOTES REVIEWED ALL:NKDA PMHX DENIES PSHX:ANKLE TOB: 1 PPD PFSH Past Medical History Hx Anticoagulant Therapy: No Arthritis: No Asthma: No Autoimmune Disease: No Anxiety: Yes Depression: Yes Heart Rhythm Problems: No Cardiovascular Problems: No High Cholesterol: Yes Chemotherapy: No Chest Pain: No Congestive Heart Failure: No COPD: No Cerebrovascular Accident: No Diabetes: No Diminished Hearing: No Endocrine: No Gastrointestinal Disorders: Yes GERD: Yes Glaucoma: No Genitourinary: Yes (genital herpes) Hepatitis: No Hiatal Hernia: No Hypertension: Yes Immune Disorder: No Implanted Vascular Access Dvce: No Kidney Stones: No Musculoskeletal: No Neurologic: Yes (bells palsy) Psychiatric: Yes Reproductive: No Respiratory: Yes (SEASONAL ALLERGIES) Immunizations Current: Yes Myocardial Infarction: No Renal Failure: No Schizophrenia: Yes Sleep Apnea: Yes Thyroid Disease: No Ulcer: No Tetanus Vaccination: < 5 Years Influenza Vaccination: No Past Surgical History Abdominal Surgery: No AICD: No Cardiac Surgery: No Ear Surgery: No Endocrine Surgery: No Eye Surgery: No Genitourinary Surgery: No Gynecologic Surgery: No Hysterectomy: No Insulin Pump: No Neurologic Surgery: No Oral Surgery: No Pacemaker: No Thoracic Surgery: No Social History Alcohol Use: No Tobacco Use: Yes (1PPD) Substance Use: No Allergies-Medications (Allergen,Severity, Reaction): Coded Allergies: grass pollen (Verified Allergy, Mild, SNEEZING, ITCHING, 03/22/17) Uncoded Allergies: Seasonal Allergies (Allergy, Unknown, 02/13/13) Per pt. Reported Meds & Prescriptions Reported Meds & Active Scripts Active Seroquel (Quetiapine Fumarate) 50 Mg Tab 50 Mg PO HS Reported Quetiapine (Quetiapine Fumarate) 400 Mg Tab 400 Mg PO BID Haloperidol 5 Mg Tab 5 Mg PO DAILY Benztropine (Benztropine Mesylate) 0.5 Mg Tab 1 Mg PO HS Acyclovir 400 Mg Tab 400 Mg PO TID Review of Systems Except as stated in HPI: all other systems reviewed are Neg General / Constitutional: No: Fever Eyes: No: Visual changes HENT: No: Headaches Cardiovascular: No: Chest Pain or Discomfort Respiratory: Positive: Wheezing Gastrointestinal: No: Abdominal Pain Genitourinary: No: Dysuria Musculoskeletal: No: Pain Skin: No Rash Neurologic: No: Weakness Psychiatric: No: Depression Endocrine: No: Polydipsia Hematologic/Lymphatic: No: Easy Bruising Physical Exam Narrative GENERAL: SKIN: Warm and dry. HEAD: Atraumatic. Normocephalic. EYES: Pupils equal and round. No scleral icterus. No injection or drainage. ENT: No nasal bleeding or discharge. Mucous membranes pink and moist. NECK: Trachea midline. No JVD. CARDIOVASCULAR: Regular rate and rhythm. RESPIRATORY: No accessory muscle use. MILD WHEEZING NOTED, GOOD TV GASTROINTESTINAL: Abdomen soft, non-tender, nondistended. Hepatic and splenic margins not palpable. MUSCULOSKELETAL: Extremities without clubbing, cyanosis, or edema. No obvious deformities. NEUROLOGICAL: Awake and alert. No obvious cranial nerve deficits. Motor grossly within normal limits. Five out of 5 muscle strength in the arms and legs. Normal speech. PSYCHIATRIC: Appropriate mood and affect; insight and judgment normal. Data Data Last Documented VS Vital Signs Date Time Temp Pulse Resp B/P (MAP) Pulse Ox O2 Delivery O2 Flow Rate FiO2 04/03/17 21:13 98.7 107 16 130/82 (98) 97 Room Air MDM Medical Decision Making Medical Screen Exam Complete: Yes Emergency Medical Condition: Yes Medical Record Reviewed: Yes Differential Diagnosis BRONCHITIS V PNA V ASTHMA (NEW ONSET) Narrative Course CXR NEG FOR PNA/PTX... Diagnosis Primary Impression: Bronchospasm Referrals: Aries Giordano MD FOR FURTHER EVALUATION OF YOUR WHEEZING FOR ASTHMA VS COPD AND ALSO TO EVALUATE FOR SLEEP APNEA Patient Instructions: Bronchospasm (ED), General Instructions Scripts Albuterol 18 GM Inh (Ventolin Hfa 18 GM Inh) 90 Mcg/Act Aer 1 PUFF INH Q4H Y for SHORTNESS OF BREATH, #1 INHALER 0 Refills Prov: Cornelio Larson MD 04/03/17 Disposition: 01 DISCHARGE HOME Condition: Stable Cornelio Larson MD Apr 03, 2017 23:48
== END 2017-04-04 00:21 | disposition home or self-care (01) ==
LOC: NEPD 21:11
DX: J98.01 Acute bronchospasm (principal); F17.210 Nicotine dependence, cigarettes, uncomplicated; F20.9 Schizophrenia, unspecified
CPT/HCPCS: 99283

== ENCOUNTER 2017-04-28 23:01 | Emergency (ER) | payer MEDICARE, OTHER ==
[~2017-04-28] VITALS: Ht 180.3 cm; Wt 80.0 kg
[~2017-04-28 23:01] MED LIST changes: +DIPH25CA PO; -FLUT50SP EACH NARE; +QUET400T PO; +VENTAER INH
[2017-04-28 23:15] VITALS: BP 138/83; PULSE 93; RESP 16; TEMP 97.8; O2SAT 97
--- NOTE | 2017-04-29 00:23 | PD ---
HPI Chief Complaint: Medical Clearance Time Seen by Provider: 00:02 Travel History International Travel<30 days: No Contact w/Intl Traveler<30days: No Traveled to known affect area: No History of Present Illness HPI 41-year-old male with history of schizophrenia presents to emergency department requesting a decrease in his Seroquel dosing because his mouth has been dry. Patient states that he is residing at a residential house and they will not adjust his medication that a psychiatrist tests do this. Patient states that he cannot have an appointment with a psychiatrist until May. He does tell me that he can walk in on Monday and speak with somebody in regards to the cystoscopy enlargement. He has no other symptoms to report. PFSH Past Medical History Hx Anticoagulant Therapy: No Arthritis: No Asthma: No Autoimmune Disease: No Anxiety: Yes Depression: Yes Heart Rhythm Problems: No Cardiovascular Problems: No High Cholesterol: Yes Chemotherapy: No Chest Pain: No Congestive Heart Failure: No COPD: No Cerebrovascular Accident: No Diabetes: No Patient Takes Glucophage: No Diminished Hearing: No Endocrine: No Gastrointestinal Disorders: Yes GERD: Yes Glaucoma: No Genitourinary: Yes (genital herpes) Hepatitis: No Hiatal Hernia: No Hypertension: Yes Immune Disorder: No Implanted Vascular Access Dvce: No Kidney Stones: No Musculoskeletal: No Neurologic: Yes (bells palsy) Psychiatric: Yes Reproductive: No Respiratory: Yes (SEASONAL ALLERGIES) Immunizations Current: Yes Myocardial Infarction: No Renal Failure: No Schizophrenia: Yes Sleep Apnea: Yes Thyroid Disease: No Ulcer: No Tetanus Vaccination: < 5 Years Influenza Vaccination: No Past Surgical History Abdominal Surgery: No AICD: No Cardiac Surgery: No Ear Surgery: No Endocrine Surgery: No Eye Surgery: No Genitourinary Surgery: No Gynecologic Surgery: No Hysterectomy: No Insulin Pump: No Neurologic Surgery: No Oral Surgery: No Pacemaker: No Thoracic Surgery: No Other Surgery: Yes (hemorrhoidectomy) Social History Alcohol Use: No Tobacco Use: Yes (1PPD) Substance Use: No Allergies-Medications (Allergen,Severity, Reaction): Coded Allergies: grass pollen (Verified Allergy, Mild, SNEEZING, ITCHING, 04/29/17) Uncoded Allergies: Seasonal Allergies (Allergy, Unknown, 02/13/13) Per pt. Reported Meds & Prescriptions Reported Meds & Active Scripts Active Diphenhydramine (Diphenhydramine HCl) 25 Mg Cap 25 Mg PO HS PRN Ventolin Hfa 18 GM Inh (Albuterol Sulfate) 90 Mcg/Act Aer 1 Puff INH Q4H PRN Seroquel (Quetiapine Fumarate) 50 Mg Tab 50 Mg PO HS Reported Quetiapine (Quetiapine Fumarate) 400 Mg Tab 400 Mg PO BID Haloperidol 5 Mg Tab 5 Mg PO DAILY Benztropine (Benztropine Mesylate) 0.5 Mg Tab 1 Mg PO HS Acyclovir 400 Mg Tab 400 Mg PO TID Review of Systems Except as stated in HPI: all other systems reviewed are Neg Physical Exam Narrative GENERAL: Well-nourished, well-developed male patient in no acute distress. SKIN: Focused skin assessment warm/dry. HEAD: Normocephalic. EYES: No scleral icterus. No injection or drainage. NECK: Supple, trachea midline. No JVD or lymphadenopathy. CARDIOVASCULAR: Regular rate and rhythm without murmurs, gallops, or rubs. RESPIRATORY: Breath sounds equal bilaterally. No accessory muscle use. GASTROINTESTINAL: Abdomen soft, non-tender, nondistended. MUSCULOSKELETAL: No cyanosis, or edema. BACK: Nontender without obvious deformity. No CVA tenderness. Data Data Last Documented VS Vital Signs Date Time Temp Pulse Resp B/P (MAP) Pulse Ox O2 Delivery O2 Flow Rate FiO2 04/29/17 00:46 04/28/17 23:15 97.8 93 16 97 Room Air Orders Orders Ed Discharge Order (04/29/17 00:35) MDM Medical Decision Making Medical Screen Exam Complete: Yes Emergency Medical Condition: Yes Medical Record Reviewed: Yes Differential Diagnosis Medication side effect versus adverse effect versus allergies versus dry mouth Narrative Course 41-year-old male presents to emergency department for evaluation of dry mouth, requesting a dose adjustment on his Seroquel. Patient appears without distress. His vital signs are stable. I have encouraged him to walk in on Monday to see if he can get this changed as he states he can do this at [facility]. I told him I would not be adjusting his medication here in emergency department. He verbalizes understanding. He agrees to return immediately with any acute worsening symptoms. Diagnosis Primary Impression: Medication side effect Qualified Codes: T88.7XXA - Unspecified adverse effect of drug or medicament, initial encounter Additional Impression: Dry mouth Referrals: Primary Care Physician Patient Instructions: Adverse Drug Reaction (ED), General Instructions Med/Other Pt SpecificInfo: No Change to Meds Disposition: 01 DISCHARGE HOME Condition: Stable Meli Mcdaniel Apr 29, 2017 00:23
[2017-05-02] MEDS ORDERED: GABA100C4 PO (13:13)
== END 2017-04-29 00:51 | disposition home or self-care (01) ==
LOC: NEPD 23:01
DX: R68.2 Dry mouth, unspecified (principal); T43.595A Adverse effect of other antipsychotics and neuroleptics, initial encounter; F20.9 Schizophrenia, unspecified; F17.200 Nicotine dependence, unspecified, uncomplicated
CPT/HCPCS: 99282